=== PATIENT | female | born 1940 | race Caucasian/White ===

== ENCOUNTER 2016-11-07 21:47 | Inpatient (IN) | payer OTHER ==
[~2016-11-07] VITALS: Ht 154.9 cm; Wt 36.4 kg
[~2016-11-07 21:47] MED LIST: BP medication; BP medication PO; FAMO40TA57 PO; LEVE500T6 PO; LISI1TAB3 PO; PRED20TA PO; VENTOLIN HFA18 GM IH
[2016-11-07 22:29] LABS: BILIRUBIN,URINE NEGATIVE (NEG); GLUCOSE,URINE NEGATIVE (NEG); NITRITE,URINE NEGATIVE (NEG); PH,URINE 6.5; PROTEIN,URINE 100 mg/dL (NEG-TRACE); UROBILINOGEN,URINE 0.2 mg/dL (0.2 mg/dL)
[2016-11-07] MEDS ORDERED: IV NORMAL SALINE 500ML BAG 500 ML IV ONE (22:30)
[2016-11-07 22:36] LABS: BARBITURATES NEG (NEG); BENZODIAZEPINES POS (NEG); CANNABINOIDS NEG (NEG); COCAINE NEG (NEG); ETHANOL, URINE NEG (NEG); METHADONE NEG (NEG); OPIATES NEG (NEG); PHENCYCLIDINE NEG (NEG)
[2016-11-07 22:44] LABS: BASO % 0 % (0-3); EOS % 1 % (0-3); HEMATOCRIT 30.7 % (36.0-47.0); HEMOGLOBIN 10.2 g/dL (12.0-15.5); LYMPH # 0.6 x10^3/uL (1.0-4.8); LYMPH % 17 % (24-48); MEAN CORPUSCULAR HEMOGLOBIN 32 pg (25-35); MEAN CORPUSCULAR HGB CONC 33 g/dL (31-37); MEAN CORPUSCULAR VOLUME 97 fL (79-100); MONO % 4 % (0-9); NEUT % 78 % (31-73); PLATELET COUNT 107 x10^3/uL (140-400); RED BLOOD COUNT 3.17 x10^6/uL (3.50-5.40); RED CELL DISTRIBUTION WIDTH 14.7 % (11.5-14.5); WHITE BLOOD COUNT 3.5 x10^3/uL (4.0-11.0)
[2016-11-07 22:45] LABS: BACTERIA,URINE MANY /HPF (0-FEW); SQUAMOUS EPITHELIAL CELL,UR FEW /LPF
[2016-11-07 22:53] LABS: PROTHROMBIN TIME PATIENT 12.6 SEC (11.7-14.0)
[2016-11-07 22:54] LABS: CREATININE 1.2 mg/dL (0.6-1.0); GFR 43.8; POTASSIUM 3.5 mmol/L (3.5-5.1)
[2016-11-07 23:00] LABS: ALBUMIN 3.7 g/dL (3.4-5.0); ALBUMIN/GLOBULIN RATIO 0.9 (1.0-1.7); TOTAL BILIRUBIN 0.5 mg/dL (0.2-1.0)
--- NOTE | 2016-11-07 23:20 | RAD ---
PROCEDURE CT head without contrast HISTORY Seizure TECHNIQUE Exposure: One or more of the following individualized dose reduction techniques were utilized for this exam: 1. Automated exposure control. 2. Adjustment of the mA and/or kV according to patient size. 3. Use of iterative reconstruction technique. [address] imaging skullbase to vertex COMPARISON CT head September 04, 2014 FINDINGS Extensive cerebral white matter hypoattenuation is similar to the prior, nonspecific, statistically most likely advanced chronic microvascular ischemic gliosis. No intracranial hemorrhage, mass, hydrocephalus or infarction mild generalized brain atrophy similar the prior exam orbits, paranasal sinuses, mastoids and bones are unremarkable. IMPRESSION No acute intracranial CT abnormality. Stable exam. Electronically signed by: Noman Carrion MD (Nov 07, 2016 23:18:53)
[2016-11-08] VITALS (8 sets, daily range): BP systolic 119–159; BP diastolic 50–114
[2016-11-08] MEDS ORDERED: ONDANSETRON PF 4 MG/2 ML VIAL. IV PRN (01:45)
[2016-11-08] MEDS ORDERED: ACETAMINOPHEN 325 MG TABLET. PO PRN (01:45)
--- NOTE | 2016-11-08 01:55 | ED.ADGEN ---
Past Medical History Past Medical History: Dementia, Hypertension, Seizure, Schizophrenia, Other Additional Past Medical Histor: CHRONIC N/V Past Surgical History: Alcohol Use: None Drug Use: None Adult General Chief Complaint Chief Complaint: SEIZURE HPI HPI Patient is a 75 year old woman, history of seizure disorder, dementia, hypertension, who presents via EMS with report of seizure. Previous report, patient was found by her lying on the couch, experiencing a seizure. Per EMS report, the patient is reportedly taking her medications as directed. Patient had a second seizure en route to the ED, at that time was given 5 of Versed, upon arrival seizure activity has ceased, and patient is postictal. Is maintaining an airway, but not answering questions or following commands. No reported history of trauma, fever, or preceding illness described by medics, however patient's family is not present in the ED at this time patient cannot provide additional history. Review of Systems Review of Systems Unable to obtain secondary to clinical condition. Current Medications Current Medications Current Medications Medications (Trade) Dose Ordered Sig/Agata Start Time Stop Time Status Last Admin Dose Admin Sodium Chloride (Iv Sodium Chloride 0.9% 500ml Bag) 500 ml @ 500 mls/hr 1X ONCE 11/07/16 22:30 11/07/16 23:29 DC 11/07/16 22:40 500 MLS/HR Allergies Allergies Allergies Coded Allergies Type Severity Reaction Last Updated Verified benztropine mesylate Allergy Intermediate 09/10/14 Yes chocolate flavor Allergy Intermediate 09/10/14 Yes cocaine Allergy Intermediate HIVES 09/10/14 Yes codeine Allergy Intermediate 09/10/14 Yes milk Adverse Reaction Intermediate Nausea and Vomiting 04/19/15 Yes Physical Exam Physical Exam Constitutional: Well developed, thin, no acute distress, non-toxic appearance. [ ] Nasal cannula in place. HENT: Normocephalic, atraumatic, bilateral external ears normal, oropharynx moist, no oral exudates, nose normal. [] Eyes: PERRLA, EOMI, conjunctiva normal, no discharge. [] Neck: Normal range of motion, no tenderness, supple, no stridor. [] Cardiovascular:Heart rate regular rhythm, no murmur, S1, S2, rubs or gallops. [] Lungs & Thorax: Bilateral breath sounds clear to auscultation, no wheezing, rhonchi, rales. [] Abdomen: Bowel sounds normal, soft, no tenderness, no rebound or rigidity, no guarding, no masses, no pulsatile masses. [] Skin: Warm, dry, no erythema, no rash. [] Back: No tenderness, no CVA tenderness. [] Extremities: No tenderness, no cyanosis, no clubbing, ROM intact, no edema. [] Neurologic: Patient will open eyes to verbal and tactile stimuli, not speaking, not following commands, and reassessment, patient is speaking with speech is garbled, is following commands appropriately. Psychologic: Affect normal, judgement normal, mood normal. [] Current Patient Data Vital Signs Vital Signs Date Time Temp Pulse Resp B/P Pulse Ox O2 Delivery O2 Flow Rate FiO2 11/07/16 23:47 88 16 159/114 99 Room Air 11/07/16 21:50 98.5 2 98.5 Lab Values Laboratory Tests Test 11/07/16 22:15 11/07/16 22:30 Urine Collection Type Unknown Urine Color Yellow Urine Clarity Clear Urine pH 6.5 Urine Specific [place] 1.010 Urine Protein 100mg/dL (NEG-TRACE) Urine Glucose (UA) Negativemg/dL (NEG) Urine Ketones (Stick) Negativemg/dL (NEG) Urine Blood Trace (NEG) Urine Nitrite Negative (NEG) Urine Bilirubin Negative (NEG) Urine Urobilinogen Dipstick 0.2mg/dL (0.2 mg/dL) Urine Leukocyte Esterase Trace (NEG) Urine RBC 3-5/HPF (0-2) Urine WBC 5-10/HPF (0-4) Urine Squamous Epithelial Cells Few/LPF Urine Bacteria Many/HPF (0-FEW) Urine Opiates Screen Neg (NEG) Urine Methadone Screen Neg (NEG) Urine Barbiturates Neg (NEG) Urine Phencyclidine Screen Neg (NEG) Urine Amphetamine/Methamphetamine Neg (NEG) Urine Benzodiazepines Screen Pos (NEG) Urine Cocaine Screen Neg (NEG) Urine Cannabinoids Screen Neg (NEG) Urine Ethyl Alcohol Neg (NEG) White Blood Count 3.5x10^3/uL (4.0-11.0) L Red Blood Count 3.17x10^6/uL (3.50-5.40) L Hemoglobin 10.2g/dL (12.0-15.5) L Hematocrit 30.7% (36.0-47.0) L Mean Corpuscular Volume 97fL (79-100) Mean Corpuscular Hemoglobin 32pg (25-35) Mean Corpuscular Hemoglobin Concent 33g/dL (31-37) Red Cell Distribution Width 14.7% (11.5-14.5) H Platelet Count 107x10^3/uL (140-400) L Neutrophils (%) (Auto) 78% (31-73) H Lymphocytes (%) (Auto) 17% (24-48) L Monocytes (%) (Auto) 4% (0-9) Eosinophils (%) (Auto) 1% (0-3) Basophils (%) (Auto) 0% (0-3) Neutrophils # (Auto) 2.8x10^3uL (1.8-7.7) Lymphocytes # (Auto) 0.6x10^3/uL (1.0-4.8) L Monocytes # (Auto) 0.1x10^3/uL (0.0-1.1) Eosinophils # (Auto) 0.0x10^3/uL (0.0-0.7) Basophils # (Auto) 0.0x10^3/uL (0.0-0.2) Prothrombin Time 12.6SEC (11.7-14.0) Prothrombin Time INR 1.0 (0.8-1.1) PTT 31SEC (24-38) Sodium Level 141mmol/L (136-145) Potassium Level 3.5mmol/L (3.5-5.1) Chloride Level 104mmol/L (98-107) Carbon Dioxide Level 26mmol/L (21-32) Anion Gap 11 (6-14) Blood Urea Nitrogen 21mg/dL (7-20) H Creatinine 1.2mg/dL (0.6-1.0) H Estimated GFR (Cockcroft-Gault) 43.8 BUN/Creatinine Ratio 18 (6-20) Glucose Level 119mg/dL (70-99) H Lactic Acid Level 2.0mmol/L (0.4-2.0) Calcium Level 9.0mg/dL (8.5-10.1) Total Bilirubin 0.5mg/dL (0.2-1.0) Aspartate Amino Transferase (AST) 27U/L (15-37) Alanine Aminotransferase (ALT) 19U/L (14-59) Alkaline Phosphatase 134U/L (46-116) H Troponin I Quantitative < 0.017ng/mL (0.000-0.055) Total Protein 8.0g/dL (6.4-8.2) Albumin 3.7g/dL (3.4-5.0) Albumin/Globulin Ratio 0.9 (1.0-1.7) L Laboratory Tests 11/07/16 22:30 Laboratory Tests 11/07/16 22:30 EKG EKG EC23/11/17: Sinus tachycardia, heart rate 112 bpm, low limb lead voltage noted with incomplete right bundle-branch block noted, abnormalities noted in inferior leads, QTc of 482, DC 132, QRS of 122, abnormal ECG, no prior for comparison, does not meet STEMI criteria. As interpreted by me. Radiology/Procedures Radiology/Procedures [] [facility] [address] [place] [address] IMAGING REPORT Signed PATIENT: EVELYN SERRA ACCOUNT: [id number] : 1940 LOCATION: ER AGE: 75 SEX: F EXAM STATUS: PRE ER ORD. PHYSICIAN: JULIA HERNANDEZ DO REASON: seizure PROCEDURE: HEAD WO CONTRAST PROCEDURE CT head without contrast HISTORY Seizure TECHNIQUE Exposure: One or more of the following individualized dose reduction techniques were utilized for this exam: 1. Automated exposure control. 2. Adjustment of the mA and/or kV according to patient size. 3. Use of iterative reconstruction technique. [address] imaging skullbase to vertex COMPARISON CT head September 04, 2014 FINDINGS Extensive cerebral white matter hypoattenuation is similar to the prior, nonspecific, statistically most likely advanced chronic microvascular ischemic gliosis. No intracranial hemorrhage, mass, hydrocephalus or infarction mild generalized brain atrophy similar the prior exam orbits, paranasal sinuses, mastoids and bones are unremarkable. IMPRESSION No acute intracranial CT abnormality. Stable exam. Electronically signed by: Elly Carrion MD (Nov 07, 2016 23:18:53) DICTATED and SIGNED BY: ELLY CARRION MD DATE: 11/07/16 [id number] CC: JENN ZUÑIGA MD; JULIA HERNANDEZ DO ~ Impressions: Chest x-ray: One view: Normal ulnar a silhouette, enlarged cardiac silhouette, no infiltrates, no effusions, no soft tissue or bony abnormalities identified. No significant changes from prior. As interpreted by me. Course & Med Decision Making Course & Med Decision Making Pertinent Labs and Imaging studies reviewed. (See chart for details) Patient with improvement of mentation, is now awake, alert, garbled speech remains, patient is moving all extremities. Unclear what her baseline mental status is, unable to contact family after multiple attempts. Did discuss findings as above with Dr. Holly, on-call for the patient's primary care provider , we'll mid to the hospital for observation, seizure protocol, and consultation with neurology. Patient remained stable during her ED course. No further seizure activity. Transfer to the floor without issue. Dragon Disclaimer Dragon Disclaimer This electronic medical record was generated, in whole or in part, using a voice recognition dictation system. Departure Impression: Primary Impression: Seizure Disposition: 09 ADMITTED INPATIENT Admitting Physician: Levon Holly Condition: IMPROVED JULIA HERNANDEZ DO Nov 08, 2016 01:55
--- NOTE | 2016-11-08 08:51 | EKG ---
[facility] [address] [place] [address] Test Date: 2016-11-07 Test Time: 22:18:41 Pat Name: EVELYN SERRA Department: Room: Gender: F [employer]: : 1940 Requested By: JULIA HERNANDEZ Order Number: [id number] Reading MD: Measurements Intervals [place] Rate: 112 P: 44 NV: 132 QRS: 87 QRSD: 122 T: -3 QT: 352 QTc: 482 Interpretive Statements SINUS TACHYCARDIA ATRIAL PREMATURE COMPLEX(ES) LOW LIMB LEAD VOLTAGE INCOMPLETE RIGHT BUNDLE BRANCH BLOCK T ABNORMALITY IN INFERIOR LEADS ABNORMAL ECG RI6.01 No previous ECG available for comparison
--- NOTE | 2016-11-08 09:04 | RAD ---
AP portable chest radiograph 11/07/2016 Clinical History: Altered mental status. Clinical concern for cardiopulmonary disease. An AP portable erect digital radiograph of the chest was obtained. Comparison study is dated 03/12/2016. The cardiac silhouette is mildly enlarged. The thoracic aorta is tortuous. No acute pulmonary infiltrate is seen. No pleural effusion or pneumothorax is noted. The osseous structures are unchanged. Impression: Mild cardiomegaly. No acute pulmonary infiltrate is seen.
--- NOTE | 2016-11-08 12:06 | PDOC2 ---
NEUROLOGY CONSULT Date of Admission Date of Admission DATE: 11/08/16 TIME: 11:52 Reason for Consult Reason for Consult: IMPRESSION: Seizure. Metabolic encephalopathy. UTI HTN Dementia Schizophrenia. Benzo positive in system, but unknown her meds hx. RECOMMENDATIONS/PLAN: Continue Keppra 500 mg bid. EEG. Lab: see orders. Treat UTI per floor team Treat medical diseases per floor team. HISTORY OF THE PRESENT ILLNESS: 75-y-old female patient with Hx of seizures and has been treated with Keppra. She was reportedly to have 2 seizures on 11/07 to be brought to the ER of [facility]. No detailed information is available about her seizure. She is significantly demented and is unable to provide history. PAST MEDICAL HISTORY: Please see above. PAST SURGERY HISTORY: . ALLERGY: Unknown MEDICATIONS: Refer to [facility] HISTORY: Non contributory. SOCIAL HISTORY: Unknown her status of smoking, drinking, and illicit drug use. REVIEW OF SYSTEMS: Constitutional: Mild malnutrition. Head: No recent traumatic brain or head injury. Skin: No edema, or rash. Ear: No infection, tinnitus. Eyes: No vision loss or color blindness. Nose: No bleeding or purulent discharges. Hearing: No hearing decrease. Neck: No injury. Breast: No history of cancer, masses,or discharges. Cardiac: HTN Pulmonary: No current pneumonia. GI: No GI ulcer, GI bleeding. Urinary/genital: UTI. Endocrinologic: No cousin face, craniofacial dysmorphism, polydactyly. Skeletomuscular: Generalized weakness. Neurological: see HP. Psychiatric: Denies drug use/abuse. Otherwise, not [id number] review of systems. PHYSICAL EXAMINATION: General appearance is in subacute distress. HEENT: Normocephalic and nontraumatic. Eyes, nose, ears, and throat are unremarkable. Neck is supple. No lymphadenopathy.No crepitus. Cardiovascular: S1, S2, regular rate and rhythm. Pulmonary: Relative clear to auscultation bilaterally. Abdomen: Bowel sounds are positive. Extremities: No rash, lesions, or edema. No restriction of range of motion NEUROLOGICAL EXAMINATION: Sleepiness but arousable. Not oriented to time, place and person. PERRL. EOMI. CN: no acute focal findings. Muscle tone: within normal. Muscle strength: 4+ DTR: 2- Plantar reflex: Neutral response bilaterally Gait: not examined in bed. Sensory exam: no acute abnormal findings. Not able to access cerebellar signs due to not follow commands. She was not able to perform F-T-N test. Current Medications Current Medications Current Medications Sodium Chloride (Iv Sodium Chloride 0.9% 500ml Bag) 500 ml @ 500 mls/hr 1X ONCE IV Last administered on 11/07/16t 22:40; Start 11/07/16 at 22:30; Stop at 23:29; Status DC Ondansetron HCl (Zofran) 4 mg PRN Q8HRS PRN IV NAUSEA/VOMITING; Start 11/08/16 at 01:45; Stop 11/09/16 at 01:44 Acetaminophen (Tylenol) 650 mg PRN Q4HRS PRN PO FEVER; Start 11/08/16 at 01:45; Stop 11/09/16 at 01:44 Levetiracetam (Keppra) 500 mg BID PO ; Start 11/08/16 at 12:00; Status UNV Active Scripts Active Pepcid (Famotidine) 40 Mg Tablet 40 Mg PO HS Reported Ventolin Hfa Inhaler (Albuterol Sulfate) 18 Gm Hfa.aer.ad 18 Gm IH DAILY Levetiracetam 500 Mg Tablet 500 Mg PO DAILY Allergies Allergies: Coded Allergies: benztropine mesylate (Verified Allergy, Intermediate, 09/10/14) chocolate flavor (Verified Allergy, Intermediate, 09/10/14) cocaine (Verified Allergy, Intermediate, HIVES, 09/10/14) codeine (Verified Allergy, Intermediate, 09/10/14) milk (Verified Adverse Reaction, Intermediate, Nausea and Vomiting, ) Vitals VITALS Vital Signs Date Time Temp Pulse Resp B/P Pulse Ox O2 Delivery O2 Flow Rate FiO2 11/08/16 11:00 100.5 90 18 125/81 99 Room Air 100.5 11/08/16 07:00 Labs Labs Laboratory Tests Test 11/07/16 22:15 11/07/16 22:30 Urine Collection Type Unknown Urine Color Yellow Urine Clarity Clear Urine pH 6.5 Urine Specific [place] 1.010 Urine Protein 100mg/dL (NEG-TRACE) Urine Glucose (UA) Negativemg/dL (NEG) Urine Ketones (Stick) Negativemg/dL (NEG) Urine Blood Trace (NEG) Urine Nitrite Negative (NEG) Urine Bilirubin Negative (NEG) Urine Urobilinogen Dipstick 0.2mg/dL (0.2 mg/dL) Urine Leukocyte Esterase Trace (NEG) Urine RBC 3-5/HPF (0-2) Urine WBC 5-10/HPF (0-4) Urine Squamous Epithelial Cells Few/LPF Urine Bacteria Many/HPF (0-FEW) Urine Opiates Screen Neg (NEG) Urine Methadone Screen Neg (NEG) Urine Barbiturates Neg (NEG) Urine Phencyclidine Screen Neg (NEG) Urine Amphetamine/Methamphetamine Neg (NEG) Urine Benzodiazepines Screen Pos (NEG) Urine Cocaine Screen Neg (NEG) Urine Cannabinoids Screen Neg (NEG) Urine Ethyl Alcohol Neg (NEG) White Blood Count 3.5x10^3/uL (4.0-11.0) Red Blood Count 3.17x10^6/uL (3.50-5.40) Hemoglobin 10.2g/dL (12.0-15.5) Hematocrit 30.7% (36.0-47.0) Mean Corpuscular Volume 97fL (79-100) Mean Corpuscular Hemoglobin 32pg (25-35) Mean Corpuscular Hemoglobin Concent 33g/dL (31-37) Red Cell Distribution Width 14.7% (11.5-14.5) Platelet Count 107x10^3/uL (140-400) Neutrophils (%) (Auto) 78% (31-73) Lymphocytes (%) (Auto) 17% (24-48) Monocytes (%) (Auto) 4% (0-9) Eosinophils (%) (Auto) 1% (0-3) Basophils (%) (Auto) 0% (0-3) Neutrophils # (Auto) 2.8x10^3uL (1.8-7.7) Lymphocytes # (Auto) 0.6x10^3/uL (1.0-4.8) Monocytes # (Auto) 0.1x10^3/uL (0.0-1.1) Eosinophils # (Auto) 0.0x10^3/uL (0.0-0.7) Basophils # (Auto) 0.0x10^3/uL (0.0-0.2) Prothrombin Time 12.6SEC (11.7-14.0) Prothromb Time International Ratio 1.0 (0.8-1.1) Activated Partial Thromboplast Time 31SEC (24-38) Sodium Level 141mmol/L (136-145) Potassium Level 3.5mmol/L (3.5-5.1) Chloride Level 104mmol/L (98-107) Carbon Dioxide Level 26mmol/L (21-32) Anion Gap 11 (6-14) Blood Urea Nitrogen 21mg/dL (7-20) Creatinine 1.2mg/dL (0.6-1.0) Estimated GFR (Cockcroft-Gault) 43.8 BUN/Creatinine Ratio 18 (6-20) Glucose Level 119mg/dL (70-99) Lactic Acid Level 2.0mmol/L (0.4-2.0) Calcium Level 9.0mg/dL (8.5-10.1) Total Bilirubin 0.5mg/dL (0.2-1.0) Aspartate Amino Transf (AST/SGOT) 27U/L (15-37) Alanine Aminotransferase (ALT/SGPT) 19U/L (14-59) Alkaline Phosphatase 134U/L (46-116) Troponin I Quantitative < 0.017ng/mL (0.000-0.055) Total Protein 8.0g/dL (6.4-8.2) Albumin 3.7g/dL (3.4-5.0) Albumin/Globulin Ratio 0.9 (1.0-1.7) Laboratory Tests Test 11/07/16 22:15 11/07/16 22:30 Urine Collection Type Unknown Urine Color Yellow Urine Clarity Clear Urine pH 6.5 Urine Specific [place] 1.010 Urine Protein 100mg/dL (NEG-TRACE) Urine Glucose (UA) Negativemg/dL (NEG) Urine Ketones (Stick) Negativemg/dL (NEG) Urine Blood Trace (NEG) Urine Nitrite Negative (NEG) Urine Bilirubin Negative (NEG) Urine Urobilinogen Dipstick 0.2mg/dL (0.2 mg/dL) Urine Leukocyte Esterase Trace (NEG) Urine RBC 3-5/HPF (0-2) Urine WBC 5-10/HPF (0-4) Urine Squamous Epithelial Cells Few/LPF Urine Bacteria Many/HPF (0-FEW) Urine Opiates Screen Neg (NEG) Urine Methadone Screen Neg (NEG) Urine Barbiturates Neg (NEG) Urine Phencyclidine Screen Neg (NEG) Urine Amphetamine/Methamphetamine Neg (NEG) Urine Benzodiazepines Screen Pos (NEG) Urine Cocaine Screen Neg (NEG) Urine Cannabinoids Screen Neg (NEG) Urine Ethyl Alcohol Neg (NEG) White Blood Count 3.5x10^3/uL (4.0-11.0) Red Blood Count 3.17x10^6/uL (3.50-5.40) Hemoglobin 10.2g/dL (12.0-15.5) Hematocrit 30.7% (36.0-47.0) Mean Corpuscular Volume 97fL (79-100) Mean Corpuscular Hemoglobin 32pg (25-35) Mean Corpuscular Hemoglobin Concent 33g/dL (31-37) Red Cell Distribution Width 14.7% (11.5-14.5) Platelet Count 107x10^3/uL (140-400) Neutrophils (%) (Auto) 78% (31-73) Lymphocytes (%) (Auto) 17% (24-48) Monocytes (%) (Auto) 4% (0-9) Eosinophils (%) (Auto) 1% (0-3) Basophils (%) (Auto) 0% (0-3) Neutrophils # (Auto) 2.8x10^3uL (1.8-7.7) Lymphocytes # (Auto) 0.6x10^3/uL (1.0-4.8) Monocytes # (Auto) 0.1x10^3/uL (0.0-1.1) Eosinophils # (Auto) 0.0x10^3/uL (0.0-0.7) Basophils # (Auto) 0.0x10^3/uL (0.0-0.2) Prothrombin Time 12.6SEC (11.7-14.0) Prothromb Time International Ratio 1.0 (0.8-1.1) Activated Partial Thromboplast Time 31SEC (24-38) Sodium Level 141mmol/L (136-145) Potassium Level 3.5mmol/L (3.5-5.1) Chloride Level 104mmol/L (98-107) Carbon Dioxide Level 26mmol/L (21-32) Anion Gap 11 (6-14) Blood Urea Nitrogen 21mg/dL (7-20) Creatinine 1.2mg/dL (0.6-1.0) Estimated GFR (Cockcroft-Gault) 43.8 BUN/Creatinine Ratio 18 (6-20) Glucose Level 119mg/dL (70-99) Lactic Acid Level 2.0mmol/L (0.4-2.0) Calcium Level 9.0mg/dL (8.5-10.1) Total Bilirubin 0.5mg/dL (0.2-1.0) Aspartate Amino Transf (AST/SGOT) 27U/L (15-37) Alanine Aminotransferase (ALT/SGPT) 19U/L (14-59) Alkaline Phosphatase 134U/L (46-116) Troponin I Quantitative < 0.017ng/mL (0.000-0.055) Total Protein 8.0g/dL (6.4-8.2) Albumin 3.7g/dL (3.4-5.0) Albumin/Globulin Ratio 0.9 (1.0-1.7) NARESH BELL MD Nov 08, 2016 12:06
[2016-11-08] MEDS: LEVETIRACETAM 500 MG TABLET PO SCH ×2 (12:12→21:05)
--- NOTE | 2016-11-08 19:37 | PDOC ---
GENERAL General: see dictated H&P. Problems: VITAL SIGNS Vital Signs: Vital Signs Date Time Temp Pulse Resp B/P Pulse Ox O2 Delivery O2 Flow Rate FiO2 11/08/16 15:00 100.7 89 18 127/84 98 Room Air 100.7 11/08/16 07:00 I & O I & O Intake and Output 11/08/16 07:00 Intake Total 500 ml Balance 500 ml IV Total 500 ml # Voids 1 ALLERGIES Allergies: Allergies Coded Allergies Type Severity Reaction Last Updated Verified benztropine mesylate Allergy Intermediate 09/10/14 Yes chocolate flavor Allergy Intermediate 09/10/14 Yes cocaine Allergy Intermediate HIVES 09/10/14 Yes codeine Allergy Intermediate 09/10/14 Yes milk Adverse Reaction Intermediate Nausea and Vomiting 04/19/15 Yes MEDS Medications: Current Medications Medications (Trade) Dose Ordered Sig/Agata Start Time Stop Time Status Last Admin Dose Admin Acetaminophen (Tylenol) 650 mg PRN Q4HRS PRN 11/08/16 01:45 11/09/16 01:44 Levetiracetam (Keppra) 500 mg BID 11/08/16 12:00 11/08/16 12:12 500 MG Ondansetron HCl (Zofran) 4 mg PRN Q8HRS PRN 11/08/16 01:45 11/09/16 01:44 Sodium Chloride (Iv Sodium Chloride 0.9% 500ml Bag) 500 ml @ 500 mls/hr 1X ONCE 11/07/16 22:30 11/07/16 23:29 DC 11/07/16 22:40 500 MLS/HR LAB Lab: Laboratory Tests Test 11/07/16 22:15 11/07/16 22:30 11/08/16 11:45 Urine Collection Type Unknown Urine Color Yellow Urine Clarity Clear Urine pH 6.5 Urine Specific [place] 1.010 Urine Protein 100mg/dL (NEG-TRACE) Urine Glucose (UA) Negativemg/dL (NEG) Urine Ketones (Stick) Negativemg/dL (NEG) Urine Blood Trace (NEG) Urine Nitrite Negative (NEG) Urine Bilirubin Negative (NEG) Urine Urobilinogen Dipstick 0.2mg/dL (0.2 mg/dL) Urine Leukocyte Esterase Trace (NEG) Urine RBC 3-5/HPF (0-2) Urine WBC 5-10/HPF (0-4) Urine Squamous Epithelial Cells Few/LPF Urine Bacteria Many/HPF (0-FEW) Urine Opiates Screen Neg (NEG) Urine Methadone Screen Neg (NEG) Urine Barbiturates Neg (NEG) Urine Phencyclidine Screen Neg (NEG) Urine Amphetamine/Methamphetamine Neg (NEG) Urine Benzodiazepines Screen Pos (NEG) Urine Cocaine Screen Neg (NEG) Urine Cannabinoids Screen Neg (NEG) Urine Ethyl Alcohol Neg (NEG) White Blood Count 3.5x10^3/uL (4.0-11.0) Red Blood Count 3.17x10^6/uL (3.50-5.40) Hemoglobin 10.2g/dL (12.0-15.5) Hematocrit 30.7% (36.0-47.0) Mean Corpuscular Volume 97fL (79-100) Mean Corpuscular Hemoglobin 32pg (25-35) Mean Corpuscular Hemoglobin Concent 33g/dL (31-37) Red Cell Distribution Width 14.7% (11.5-14.5) Platelet Count 107x10^3/uL (140-400) Neutrophils (%) (Auto) 78% (31-73) Lymphocytes (%) (Auto) 17% (24-48) Monocytes (%) (Auto) 4% (0-9) Eosinophils (%) (Auto) 1% (0-3) Basophils (%) (Auto) 0% (0-3) Neutrophils # (Auto) 2.8x10^3uL (1.8-7.7) Lymphocytes # (Auto) 0.6x10^3/uL (1.0-4.8) Monocytes # (Auto) 0.1x10^3/uL (0.0-1.1) Eosinophils # (Auto) 0.0x10^3/uL (0.0-0.7) Basophils # (Auto) 0.0x10^3/uL (0.0-0.2) Prothrombin Time 12.6SEC (11.7-14.0) Prothromb Time International Ratio 1.0 (0.8-1.1) Activated Partial Thromboplast Time 31SEC (24-38) Sodium Level 141mmol/L (136-145) Potassium Level 3.5mmol/L (3.5-5.1) Chloride Level 104mmol/L (98-107) Carbon Dioxide Level 26mmol/L (21-32) Anion Gap 11 (6-14) Blood Urea Nitrogen 21mg/dL (7-20) Creatinine 1.2mg/dL (0.6-1.0) Estimated GFR (Cockcroft-Gault) 43.8 BUN/Creatinine Ratio 18 (6-20) Glucose Level 119mg/dL (70-99) Lactic Acid Level 2.0mmol/L (0.4-2.0) Calcium Level 9.0mg/dL (8.5-10.1) Total Bilirubin 0.5mg/dL (0.2-1.0) Aspartate Amino Transf (AST/SGOT) 27U/L (15-37) Alanine Aminotransferase (ALT/SGPT) 19U/L (14-59) Alkaline Phosphatase 134U/L (46-116) Troponin I Quantitative < 0.017ng/mL (0.000-0.055) Total Protein 8.0g/dL (6.4-8.2) Albumin 3.7g/dL (3.4-5.0) Albumin/Globulin Ratio 0.9 (1.0-1.7) Thyroid Stimulating Hormone (TSH) 1.011uIU/mL (0.358-3.74) DARYL THOMPSON MD Nov 08, 2016 19:37
[2016-11-08] MEDS ORDERED: FAMOTIDINE 20 MG TABLET. PO SCH (21:00)
[2016-11-09] VITALS (7 sets, daily range): BP systolic 129–153; BP diastolic 79–100
--- NOTE | 2016-11-09 05:33 | HP ---
ADMIT DATE: 11/08/2016 CHIEF COMPLAINT AND HISTORY OF PRESENT ILLNESS: This is a 75-year-old white female, patient of Dr. Darius Robbins who had seizure at home and then followed by a second seizure in the ambulance on the way to the Emergency Room. She does have a history of seizure disorder and reportedly is taking her medicines as directed. The second seizure was interrupted with Versed IV in the ambulance. She was postictal and nonresponsive in the Emergency Room and admitted for neurological consultation and further workup. PAST MEDICAL HISTORY: Remarkable for dementia, hypertension, seizure disorder, schizophrenia, chronic nausea and vomiting. PAST SURGICAL HISTORY: Remarkable for . SOCIAL HISTORY AND FAMILY HISTORY: Noncontributory. HOME MEDICATIONS: Listed on the computer and have been addressed. ALLERGIES: ALLERGIC TO ____ AND MILK. REVIEW OF SYSTEMS: Unobtainable due to her altered mental status. PHYSICAL EXAMINATION: HEENT: Remarkable for glasses. NECK: Supple without adenopathy or thyromegaly. CHEST: Clear to auscultation and percussion. HEART: Regular rate and rhythm without S3, S4 or murmur. ABDOMEN: Soft, nontender, without hepatosplenomegaly. EXTREMITIES: Without cyanosis, clubbing or edema. NEUROLOGIC: Remarkable for confusion. No focal findings ____. IMPRESSION: Seizures as noted above with other medical problems. PLAN: The patient has been admitted. She will be monitored ____ Neurology will be asked for suggestions and the patient will be monitored, managed and treated appropriately. DARYL THOMPSON MD DR: PAULINE/rosario JOB#: [id number] / [id number]
[2016-11-09 06:51] LABS: BASO % 1 % (0-3); EOS % 1 % (0-3); HEMATOCRIT 26.2 % (36.0-47.0); HEMOGLOBIN 8.8 g/dL (12.0-15.5); LYMPH # 1.6 x10^3/uL (1.0-4.8); LYMPH % 37 % (24-48); MEAN CORPUSCULAR HEMOGLOBIN 32 pg (25-35); MEAN CORPUSCULAR HGB CONC 34 g/dL (31-37); MEAN CORPUSCULAR VOLUME 95 fL (79-100); MONO % 10 % (0-9); NEUT % 51 % (31-73); PLATELET COUNT 101 x10^3/uL (140-400); RED BLOOD COUNT 2.77 x10^6/uL (3.50-5.40); RED CELL DISTRIBUTION WIDTH 14.5 % (11.5-14.5); WHITE BLOOD COUNT 4.3 x10^3/uL (4.0-11.0)
[2016-11-09 06:56] LABS: CALCIUM 8.6 mg/dL (8.5-10.1); CREATININE 1.5 mg/dL (0.6-1.0); GFR 33.9; POTASSIUM 3.4 mmol/L (3.5-5.1)
[2016-11-09] MEDS: LEVETIRACETAM 500 MG TABLET PO SCH ×2 (09:12→21:33)
--- NOTE | 2016-11-09 12:34 | PDOC ---
PROGRESS NOTES Subjective Subjective Pt out of her room this am. Objective Objective VSS. Afebrile. Vital Signs Date Time Temp Pulse Resp B/P Pulse Ox O2 Delivery O2 Flow Rate FiO2 11/09/16 10:37 99.3 78 16 144/88 97 Room Air 99.3 11/09/16 03:00 2.0 Intake and Output 11/09/16 07:00 Intake Total 340 ml Output Total 0 ml Balance 340 ml Intake Oral 340 ml Output Urine Total 0 ml # Voids 3 Assessment Assessment Problems Medical Problems: (1) Seizure Status: Acute Plan Plan of Care 1. Epilepsy -Neurology consulting -Pt on [facility] -Head CT: No acute intracranial CT abnormality. Stable exam. 2. Hypertension -Add Norvasc 5mg qd 3. Hypokalemia -K 3.5 upon admission, 3.4 this am. -Add KCL 10mEq qam -Recheck BMP in am 4. ARF -Creat 1.2 upon admission, 1.5 this am Comment Review of Relevant I have reviewed the following items gilbert (where applicable) has been applied. Labs Laboratory Tests Test 11/07/16 22:15 11/07/16 22:30 11/08/16 11:45 11/09/16 06:20 Urine Collection Type Unknown Urine Color Yellow Urine Clarity Clear Urine pH 6.5 Urine Specific [place] 1.010 Urine Protein 100mg/dL (NEG-TRACE) Urine Glucose (UA) Negativemg/dL (NEG) Urine Ketones (Stick) Negativemg/dL (NEG) Urine Blood Trace (NEG) Urine Nitrite Negative (NEG) Urine Bilirubin Negative (NEG) Urine Urobilinogen Dipstick 0.2mg/dL (0.2 mg/dL) Urine Leukocyte Esterase Trace (NEG) Urine RBC 3-5/HPF (0-2) Urine WBC 5-10/HPF (0-4) Urine Squamous Epithelial Cells Few/LPF Urine Bacteria Many/HPF (0-FEW) Urine Opiates Screen Neg (NEG) Urine Methadone Screen Neg (NEG) Urine Barbiturates Neg (NEG) Urine Phencyclidine Screen Neg (NEG) Urine Amphetamine/Methamphetamine Neg (NEG) Urine Benzodiazepines Screen Pos (NEG) Urine Cocaine Screen Neg (NEG) Urine Cannabinoids Screen Neg (NEG) Urine Ethyl Alcohol Neg (NEG) White Blood Count 3.5x10^3/uL (4.0-11.0) 4.3x10^3/uL (4.0-11.0) Red Blood Count 3.17x10^6/uL (3.50-5.40) 2.77x10^6/uL (3.50-5.40) Hemoglobin 10.2g/dL (12.0-15.5) 8.8g/dL (12.0-15.5) Hematocrit 30.7% (36.0-47.0) 26.2% (36.0-47.0) Mean Corpuscular Volume 97fL (79-100) 95fL (79-100) Mean Corpuscular Hemoglobin 32pg (25-35) 32pg (25-35) Mean Corpuscular Hemoglobin Concent 33g/dL (31-37) 34g/dL (31-37) Red Cell Distribution Width 14.7% (11.5-14.5) 14.5% (11.5-14.5) Platelet Count 107x10^3/uL (140-400) 101x10^3/uL (140-400) Neutrophils (%) (Auto) 78% (31-73) 51% (31-73) Lymphocytes (%) (Auto) 17% (24-48) 37% (24-48) Monocytes (%) (Auto) 4% (0-9) 10% (0-9) Eosinophils (%) (Auto) 1% (0-3) 1% (0-3) Basophils (%) (Auto) 0% (0-3) 1% (0-3) Neutrophils # (Auto) 2.8x10^3uL (1.8-7.7) 2.2x10^3uL (1.8-7.7) Lymphocytes # (Auto) 0.6x10^3/uL (1.0-4.8) 1.6x10^3/uL (1.0-4.8) Monocytes # (Auto) 0.1x10^3/uL (0.0-1.1) 0.4x10^3/uL (0.0-1.1) Eosinophils # (Auto) 0.0x10^3/uL (0.0-0.7) 0.1x10^3/uL (0.0-0.7) Basophils # (Auto) 0.0x10^3/uL (0.0-0.2) 0.0x10^3/uL (0.0-0.2) Prothrombin Time 12.6SEC (11.7-14.0) Prothromb Time International Ratio 1.0 (0.8-1.1) Activated Partial Thromboplast Time 31SEC (24-38) Sodium Level 141mmol/L (136-145) 144mmol/L (136-145) Potassium Level 3.5mmol/L (3.5-5.1) 3.4mmol/L (3.5-5.1) Chloride Level 104mmol/L (98-107) 111mmol/L (98-107) Carbon Dioxide Level 26mmol/L (21-32) 25mmol/L (21-32) Anion Gap 11 (6-14) 8 (6-14) Blood Urea Nitrogen 21mg/dL (7-20) 28mg/dL (7-20) Creatinine 1.2mg/dL (0.6-1.0) 1.5mg/dL (0.6-1.0) Estimated GFR (Cockcroft-Gault) 43.8 33.9 BUN/Creatinine Ratio 18 (6-20) Glucose Level 119mg/dL (70-99) 94mg/dL (70-99) Lactic Acid Level 2.0mmol/L (0.4-2.0) Calcium Level 9.0mg/dL (8.5-10.1) 8.6mg/dL (8.5-10.1) Total Bilirubin 0.5mg/dL (0.2-1.0) Aspartate Amino Transf (AST/SGOT) 27U/L (15-37) Alanine Aminotransferase (ALT/SGPT) 19U/L (14-59) Alkaline Phosphatase 134U/L (46-116) Troponin I Quantitative < 0.017ng/mL (0.000-0.055) Total Protein 8.0g/dL (6.4-8.2) Albumin 3.7g/dL (3.4-5.0) Albumin/Globulin Ratio 0.9 (1.0-1.7) Thyroid Stimulating Hormone (TSH) 1.011uIU/mL (0.358-3.74) Laboratory Tests Test 11/09/16 06:20 White Blood Count 4.3x10^3/uL (4.0-11.0) Red Blood Count 2.77x10^6/uL (3.50-5.40) Hemoglobin 8.8g/dL (12.0-15.5) Hematocrit 26.2% (36.0-47.0) Mean Corpuscular Volume 95fL (79-100) Mean Corpuscular Hemoglobin 32pg (25-35) Mean Corpuscular Hemoglobin Concent 34g/dL (31-37) Red Cell Distribution Width 14.5% (11.5-14.5) Platelet Count 101x10^3/uL (140-400) Neutrophils (%) (Auto) 51% (31-73) Lymphocytes (%) (Auto) 37% (24-48) Monocytes (%) (Auto) 10% (0-9) Eosinophils (%) (Auto) 1% (0-3) Basophils (%) (Auto) 1% (0-3) Neutrophils # (Auto) 2.2x10^3uL (1.8-7.7) Lymphocytes # (Auto) 1.6x10^3/uL (1.0-4.8) Monocytes # (Auto) 0.4x10^3/uL (0.0-1.1) Eosinophils # (Auto) 0.1x10^3/uL (0.0-0.7) Basophils # (Auto) 0.0x10^3/uL (0.0-0.2) Sodium Level 144mmol/L (136-145) Potassium Level 3.4mmol/L (3.5-5.1) Chloride Level 111mmol/L (98-107) Carbon Dioxide Level 25mmol/L (21-32) Anion Gap 8 (6-14) Blood Urea Nitrogen 28mg/dL (7-20) Creatinine 1.5mg/dL (0.6-1.0) Estimated GFR (Cockcroft-Gault) 33.9 Glucose Level 94mg/dL (70-99) Calcium Level 8.6mg/dL (8.5-10.1) Medications Current Medications Sodium Chloride (Iv Sodium Chloride 0.9% 500ml Bag) 500 ml @ 500 mls/hr 1X ONCE IV Last administered on 11/07/16 22:40; Start 11/07/16 at 22:30; Stop at 23:29; Status DC Ondansetron HCl (Zofran) 4 mg PRN Q8HRS PRN IV NAUSEA/VOMITING; Start 11/08/16 at 01:45; Stop 11/09/16 at 01:44; Status DC Acetaminophen (Tylenol) 650 mg PRN Q4HRS PRN PO FEVER; Start 11/08/16 at 01:45; Stop 11/09/16 at 01:44; Status DC Levetiracetam (Keppra) 500 mg BID PO Last administered on 11/09/16 09:12; Start 11/08/16 at 12:00 Famotidine (Pepcid) 40 mg QHS PO Last administered on 11/08/16 21:05; Start 11/08/16 at 21:00; Stop 11/09/16 at 02:19; Status DC Famotidine (Pepcid) 20 mg QHS PO ; Start 11/09/16 at 21:00 Active Scripts Active Pepcid (Famotidine) 40 Mg Tablet 40 Mg PO HS Reported Ventolin Hfa Inhaler (Albuterol Sulfate) 18 Gm Hfa.aer.ad 18 Gm IH DAILY Levetiracetam 500 Mg Tablet 500 Mg PO DAILY Vitals/I & O Vital Sign - Last 24 Hours 11/08/16 11/08/16 11/08/16 11/08/16 15:00 19:00 20:00 23:00 Temp 100.7 100.0 99.4 100.7 100.0 99.4 Pulse 89 91 95 Resp 18 18 B/P 127/84 150/83 148/96 Pulse Ox 98 96 100 O2 Delivery Room Air Room Air Room Air Nasal Cannula O2 Flow Rate 2.0 2.0 11/09/16 11/09/16 11/09/16 11/09/16 03:00 07:05 08:00 10:06 Temp 98.4 99.5 98.8 98.4 99.5 98.8 Pulse 86 80 68 Resp 18 16 B/P 151/100 145/88 143/79 Pulse Ox 95 96 98 O2 Delivery Room Air Room Air Room Air Room Air O2 Flow Rate 2.0 11/09/16 10:37 Temp 99.3 99.3 Pulse 78 Resp 16 B/P 144/88 Pulse Ox 97 O2 Delivery Room Air Intake and Output 11/08/16 11/08/16 11/09/16 15:00 23:00 07:00 Intake Total 100 ml 240 ml Output Total 0 ml Balance 100 ml 240 ml 0 ml DARYL THOMPSON MD Nov 09, 2016 12:34
[2016-11-09] MEDS ORDERED: POTASSIUM CHLORIDE 10 MEQ TABLET.ER. PO ONE (12:45)
--- NOTE | 2016-11-09 14:52 | PDOC ---
PROGRESS NOTES Assessment Assessment Seizure. Metabolic encephalopathy. UTI HTN Dementia Schizophrenia. Benzo positive in system, but unknown her meds hx. RECOMMENDATIONS/PLAN: Continue Keppra 500 mg bid. Treat UTI per floor team Treat medical diseases per floor team. EEG on 11/09/16: Fasting activity maybe meds effects. No seizure activity. HISTORY OF THE PRESENT ILLNESS: 75-y-old female patient with Hx of seizures and has been treated with Keppra. She was reportedly to have 2 seizures on 11/07 to be brought to the ER of [facility]. No detailed information is available about her seizure. She is significantly demented and is unable to provide history. Her mentation significantly improved on 11/09. PAST MEDICAL HISTORY: Please see above. PAST SURGERY HISTORY: . ALLERGY: Unknown MEDICATIONS: Refer to [facility] FAMILY HISTORY: Non contributory. SOCIAL HISTORY: Unknown her status of smoking, drinking, and illicit drug use. REVIEW OF SYSTEMS: Constitutional: Mild malnutrition. Head: No recent traumatic brain or head injury. Skin: No edema, or rash. Ear: No infection, tinnitus. Eyes: No vision loss or color blindness. Nose: No bleeding or purulent discharges. Hearing: No hearing decrease. Neck: No injury. Breast: No history of cancer, masses,or discharges. Cardiac: HTN Pulmonary: No current pneumonia. GI: No GI ulcer, GI bleeding. Urinary/genital: UTI. Endocrinologic: No cousin face, craniofacial dysmorphism, polydactyly. Skeletomuscular: Generalized weakness. Neurological: see HP. Psychiatric: Denies drug use/abuse. Otherwise, not [id number] review of systems. PHYSICAL EXAMINATION: General appearance is in subacute distress. HEENT: Normocephalic and nontraumatic. Eyes, nose, ears, and throat are unremarkable. Neck is supple. No lymphadenopathy.No crepitus. Cardiovascular: S1, S2, regular rate and rhythm. Pulmonary: Relative clear to auscultation bilaterally. Abdomen: Bowel sounds are positive. Extremities: No rash, lesions, or edema. No restriction of range of motion NEUROLOGICAL EXAMINATION: Awake. Laugh frequently w/o clear reason. Not oriented to time, place and person. PERRL. EOMI. Horizontal nystagmus noted. CN: no acute focal findings. Muscle tone: within normal. Muscle strength: 4+ DTR: 2- Plantar reflex: Neutral response bilaterally Gait: not examined in bed. Sensory exam: no acute abnormal findings. No acute cerebellar signs elicited except a few bits of nystagmus.. She was not able to perform F-T-N test. Objective Objective Vital Signs Date Time Temp Pulse Resp B/P Pulse Ox O2 Delivery O2 Flow Rate FiO2 11/09/16 10:37 99.3 78 16 144/88 97 Room Air 99.3 11/09/16 03:00 2.0 Intake and Output 11/09/16 07:00 Intake Total 340 ml Output Total 0 ml Balance 340 ml Intake Oral 340 ml Output Urine Total 0 ml # Voids 3 Vitals Signs Vitals VS - Last 72 Hours, by Label Date Time Temp Pulse Resp B/P Pulse Ox O2 Delivery O2 Flow Rate FiO2 11/09/16 10:37 99.3 78 16 144/88 97 Room Air 99.3 11/09/16 10:06 98.8 68 16 143/79 98 Room Air 98.8 11/09/16 08:00 Room Air 11/09/16 07:05 99.5 80 18 145/88 96 Room Air 99.5 11/09/16 03:00 98.4 86 151/100 95 Room Air 2.0 98.4 11/08/16 23:00 99.4 95 18 148/96 100 Nasal Cannula 2.0 99.4 11/08/16 20:00 Room Air 2.0 11/08/16 19:00 100.0 91 18 150/83 96 Room Air 100.0 11/08/16 15:00 100.7 89 18 127/84 98 Room Air 100.7 11/08/16 11:00 100.5 90 18 125/81 99 Room Air 100.5 11/08/16 07:00 100.2 89 18 141/79 98 Room Air 100.2 Laboratory Laboratory Laboratory Tests Test 11/09/16 06:20 White Blood Count 4.3x10^3/uL (4.0-11.0) Red Blood Count 2.77x10^6/uL (3.50-5.40) Hemoglobin 8.8g/dL (12.0-15.5) Hematocrit 26.2% (36.0-47.0) Mean Corpuscular Volume 95fL (79-100) Mean Corpuscular Hemoglobin 32pg (25-35) Mean Corpuscular Hemoglobin Concent 34g/dL (31-37) Red Cell Distribution Width 14.5% (11.5-14.5) Platelet Count 101x10^3/uL (140-400) Neutrophils (%) (Auto) 51% (31-73) Lymphocytes (%) (Auto) 37% (24-48) Monocytes (%) (Auto) 10% (0-9) Eosinophils (%) (Auto) 1% (0-3) Basophils (%) (Auto) 1% (0-3) Neutrophils # (Auto) 2.2x10^3uL (1.8-7.7) Lymphocytes # (Auto) 1.6x10^3/uL (1.0-4.8) Monocytes # (Auto) 0.4x10^3/uL (0.0-1.1) Eosinophils # (Auto) 0.1x10^3/uL (0.0-0.7) Basophils # (Auto) 0.0x10^3/uL (0.0-0.2) Sodium Level 144mmol/L (136-145) Potassium Level 3.4mmol/L (3.5-5.1) Chloride Level 111mmol/L (98-107) Carbon Dioxide Level 25mmol/L (21-32) Anion Gap 8 (6-14) Blood Urea Nitrogen 28mg/dL (7-20) Creatinine 1.5mg/dL (0.6-1.0) Estimated GFR (Cockcroft-Gault) 33.9 Glucose Level 94mg/dL (70-99) Calcium Level 8.6mg/dL (8.5-10.1) Microbiology 11/07/16 Urine Culture - Preliminary, Resulted 11/07/16 Urine Culture Result 1 (LEENA) - Preliminary, Resulted Medication Medications Current Medications Famotidine (Pepcid) 20 mg QHS PO ; Start 11/09/16 at 21:00 Famotidine (Pepcid) 40 mg QHS PO Last administered on 11/08/16 21:05; Start 11/08/16 at 21:00; Stop 11/09/16 at 02:19; Status DC Potassium Chloride (Klor-Con) 10 meq 1X ONCE PO Last administered on 11/09/16 14:07; Start 2/6/17 at 12:45; Stop 11/09/16 at 12:46; Status DC Potassium Chloride (Klor-Con) 10 meq DAILYWBKFT PO ; Start 11/10/16 at 08:00 Comment Review of Relevant I have reviewed the following items gilebrt (where applicable) has been applied. NARESH BELL MD Nov 09, 2016 14:52
--- NOTE | 2016-11-09 18:50 | EEG ---
DATE OF SERVICE: 11/09/2016 EEG NUMBER: [id number] OBJECTIVE: This is a 75-year-old female patient with history of seizure and mental status changes. EEG was requested to evaluate seizure activity. METHODS: Twenty electrodes were applied according to the international 10-20 electrode placement system. EKG monitoring, hyperventilation, intermittent photic stimulation, monopolar and bipolar montages are routinely utilized. The record was obtained on a digital system with video monitoring. FINDINGS: 1. Background: The patient was recorded in the awake and drowsy states. No actual sleep state was recorded. The overall background amplitude is 5-10 microvolts. No clear posterior dominant rhythm is observed. The overall background rhythm is with faster activity in beta frequency. Artifact also noted. 2. Abnormalities: No specific epileptiform discharge or electrographic seizure is seen. A faster activity in beta frequency is throughout the entire recording. 3. Activation: Hyperventilation was not performed because the patient was unable to follow the commands. Intermittent photic stimulation was performed with insignificant photic driving. No specific epileptiform discharge or electrographic seizure induced by intermittent photic stimulation. IMPRESSION: This EEG is an abnormal study for the awake and drowsy states. No actual sleep state was recorded. No clear posterior dominant rhythm is observed. The overall background rhythm is with fast activity in beta frequency. No focal, lateralizing, specific epileptiform discharge or electrographic seizure is seen. Faster activity in beta frequency may be medication effect. NARESH BELL MD DR: ISIAH/rosario JOB#: [id number] / [id number] PATRICIO
[2016-11-09] MEDS: FAMOTIDINE 20 MG TABLET. PO SCH (21:33)
--- NOTE | 2016-11-09 21:35 | ACF ---
Admission Forms Criteria SEIZURE Clinical Indications for Admission to Inpatient Care (Place 'X' for any and all applicable criteria): Admission is indicated for seizure and ANY ONE of the following(1)(2)(3)(4)(5): [X]I. Inpatient admission required rather than observation care (Also use Seizure: Observation Care Criteria as appropriate) because of ANY ONE of the following: [ ]a) Altered mental status that is severe or persistent [ ]b) New focal neurologic deficit that is severe or persistent [ ]c) Metabolic disorder (eg, hypoglycemia, hyponatremia) that is severe or persistent [ ]d) Recurrent seizure [ ]e) Outpatient antiseizure regimen cannot be established (eg , patient cannot tolerate medication, initiation requires inpatient care) [ ]f) Need for ongoing intravenous infusion of antiseizure medication [ ]g) Cardiac arrhythmias of immediate concern [ ]h) Cerebral bleeding, hydrocephalus, or vasospasm monitoring (14) [ ]i) Increased intracranial pressure or cerebral edema monitoring (15) [X]j) Other treatment or monitoring requiring inpatient admission [ ]II. Status epilepticus [A] or repetitive seizures not controlled with emergent treatment (6)(8) [ ]III. Brain disorder (eg, tumor, edema, and hydrocephalus) that requiring monitoring or intervention available only at inpatient level of care. [ ]IV. Brain insult (eg, severe trauma, stroke, drug toxicity, or withdrawal) that requires monitoring or intervention available only at inpatient level of care (10)(11) Extended stay beyond goal length of stay may be needed for (22) [ ]a) Complications of status epilepticus [ ]b) Refractory status epilepticus [ ]c) Etiology-specific therapy for conditions such as [employer] infection, head injury,eclampsia, severe metabolic abnormalities, and brain tumor [ ]d) Residual neurologic damage, [ ]e) Initiation of significant change to anticonvulsant treatment [ ]f) Older patients (65 years or older) [ ]g) Patient requiring intubation (eg, to protect airway) The original [employer] content created by [employer] has been revised. The portions of the content which have been revised are identified through the use of italic text or in bold, and [facility] has neither reviewed nor approved the modified material. All other unmodified content is copyright [facility]. Please see references footnoted in the original [facility] edition 2016 Admission Criteria Met?: Yes KOTA POPE Nov 09, 2016 21:35
[2016-11-10 07:28] VITALS: BP 147/82
[2016-11-10] MEDS ORDERED: POTASSIUM CHLORIDE 10 MEQ TABLET.ER. PO SCH (08:00)
[2016-11-10] MEDS: LEVETIRACETAM 500 MG TABLET PO SCH ×2 (08:13→20:36)
[2016-11-10 09:24] LABS: HEMATOCRIT 30.9 % (36.0-47.0); HEMOGLOBIN 10.5 g/dL (12.0-15.5); RED BLOOD COUNT 3.29 x10^6/uL (3.50-5.40); RED CELL DISTRIBUTION WIDTH 14.6 % (11.5-14.5); WHITE BLOOD COUNT 4.9 x10^3/uL (4.0-11.0)
[2016-11-10 09:38] LABS: CALCIUM 8.8 mg/dL (8.5-10.1); CREATININE 1.1 mg/dL (0.6-1.0); GFR 48.4; POTASSIUM 3.3 mmol/L (3.5-5.1)
[2016-11-10 10:26] VITALS: BP 142/85
--- NOTE | 2016-11-10 11:53 | PDOC ---
PROGRESS NOTES Subjective Subjective Pt awake and pleasant this am. Dementia present with overall confusion. Pt states she is eating and drinking well with good output. Objective Objective Pt awake and alert. NAD. VSS. Afebrile. Lungs CTA bilat. Resp even and unlabored. Heart with RRR. No murmurs. Vital Signs Date Time Temp Pulse Resp B/P Pulse Ox O2 Delivery O2 Flow Rate FiO2 11/10/16 10:26 99.2 77 17 142/85 97 Room Air 99.2 11/09/16 14:48 2.0 Intake and Output 11/10/16 07:00 # Voids 7 Assessment Assessment Problems Medical Problems: (1) Seizure Status: Acute Plan Plan of Care 1. Epilepsy -Neurology consulting -Pt on [facility] -Head CT: No acute intracranial CT abnormality. Stable exam. 2. Hypertension -Add Norvasc 5mg qd 3. Hypokalemia -K 3.5 upon admission, 3.3 this am. -Increase KCL to 20mEq qam -Recheck BMP in am 4. ARF -Creat 1.2 upon admission, 1.1 this am 5. UTI, cx with E.Coli -Start Macrobid 100mg bid x7 days Will follow Neuros lead on Dc as pt is medically stable from a PCP standpoint. Comment Review of Relevant I have reviewed the following items gilbert (where applicable) has been applied. Labs Laboratory Tests Test 11/08/16 11:45 11/09/16 06:20 11/10/16 08:35 Thyroid Stimulating Hormone (TSH) 1.011uIU/mL (0.358-3.74) White Blood Count 4.3x10^3/uL (4.0-11.0) 4.9x10^3/uL (4.0-11.0) Red Blood Count 2.77x10^6/uL (3.50-5.40) 3.29x10^6/uL (3.50-5.40) Hemoglobin 8.8g/dL (12.0-15.5) 10.5g/dL (12.0-15.5) Hematocrit 26.2% (36.0-47.0) 30.9% (36.0-47.0) Mean Corpuscular Volume 95fL (79-100) 94fL (79-100) Mean Corpuscular Hemoglobin 32pg (25-35) 32pg (25-35) Mean Corpuscular Hemoglobin Concent 34g/dL (31-37) 34g/dL (31-37) Red Cell Distribution Width 14.5% (11.5-14.5) 14.6% (11.5-14.5) Platelet Count 101x10^3/uL (140-400) 113x10^3/uL (140-400) Neutrophils (%) (Auto) 51% (31-73) Lymphocytes (%) (Auto) 37% (24-48) Monocytes (%) (Auto) 10% (0-9) Eosinophils (%) (Auto) 1% (0-3) Basophils (%) (Auto) 1% (0-3) Neutrophils # (Auto) 2.2x10^3uL (1.8-7.7) Lymphocytes # (Auto) 1.6x10^3/uL (1.0-4.8) Monocytes # (Auto) 0.4x10^3/uL (0.0-1.1) Eosinophils # (Auto) 0.1x10^3/uL (0.0-0.7) Basophils # (Auto) 0.0x10^3/uL (0.0-0.2) Sodium Level 144mmol/L (136-145) 143mmol/L (136-145) Potassium Level 3.4mmol/L (3.5-5.1) 3.3mmol/L (3.5-5.1) Chloride Level 111mmol/L (98-107) 110mmol/L (98-107) Carbon Dioxide Level 25mmol/L (21-32) 26mmol/L (21-32) Anion Gap 8 (6-14) 7 (6-14) Blood Urea Nitrogen 28mg/dL (7-20) 32mg/dL (7-20) Creatinine 1.5mg/dL (0.6-1.0) 1.1mg/dL (0.6-1.0) Estimated GFR (Cockcroft-Gault) 33.9 48.4 Glucose Level 94mg/dL (70-99) 98mg/dL (70-99) Calcium Level 8.6mg/dL (8.5-10.1) 8.8mg/dL (8.5-10.1) Laboratory Tests Test 11/10/16 08:35 White Blood Count 4.9x10^3/uL (4.0-11.0) Red Blood Count 3.29x10^6/uL (3.50-5.40) Hemoglobin 10.5g/dL (12.0-15.5) Hematocrit 30.9% (36.0-47.0) Mean Corpuscular Volume 94fL (79-100) Mean Corpuscular Hemoglobin 32pg (25-35) Mean Corpuscular Hemoglobin Concent 34g/dL (31-37) Red Cell Distribution Width 14.6% (11.5-14.5) Platelet Count 113x10^3/uL (140-400) Sodium Level 143mmol/L (136-145) Potassium Level 3.3mmol/L (3.5-5.1) Chloride Level 110mmol/L (98-107) Carbon Dioxide Level 26mmol/L (21-32) Anion Gap 7 (6-14) Blood Urea Nitrogen 32mg/dL (7-20) Creatinine 1.1mg/dL (0.6-1.0) Estimated GFR (Cockcroft-Gault) 48.4 Glucose Level 98mg/dL (70-99) Calcium Level 8.8mg/dL (8.5-10.1) Microbiology 11/07/16 Urine Culture - Final, Complete 11/07/16 Urine Culture Result 1 (LEENA) - Final, Complete 11/07/16 Antimicrobic Susceptibility - Final, Complete Medications Current Medications Sodium Chloride (Iv Sodium Chloride 0.9% 500ml Bag) 500 ml @ 500 mls/hr 1X ONCE IV Last administered on 11/07/16t 22:40; Start 11/07/16 at 22:30; Stop at 23:29; Status DC Ondansetron HCl (Zofran) 4 mg PRN Q8HRS PRN IV NAUSEA/VOMITING; Start 11/08/16 at 01:45; Stop 11/09/16 at 01:44; Status DC Acetaminophen (Tylenol) 650 mg PRN Q4HRS PRN PO FEVER; Start 11/08/16 at 01:45; Stop 11/09/16 at 01:44; Status DC Levetiracetam (Keppra) 500 mg BID PO Last administered on 11/10/16 08:13; Start 11/08/16 at 12:00 Famotidine (Pepcid) 40 mg QHS PO Last administered on 11/08/16 21:05; Start 11/08/16 at 21:00; Stop 11/09/16 at 02:19; Status DC Famotidine (Pepcid) 20 mg QHS PO Last administered on 11/09/16 21:33; Start 11/09/16 at 21:00 Potassium Chloride (Klor-Con) 10 meq DAILYWBKFT PO Last administered on 08:13; Start 11/10/16 at 08:00 Potassium Chloride (Klor-Con) 10 meq 1X ONCE PO Last administered on 11/09/16 14:07; Start 11/09/16 at 12:45; Stop 11/09/16 at 12:46; Status DC Active Scripts Active Pepcid (Famotidine) 40 Mg Tablet 40 Mg PO HS Reported Ventolin Hfa Inhaler (Albuterol Sulfate) 18 Gm Hfa.aer.ad 18 Gm IH DAILY Levetiracetam 500 Mg Tablet 500 Mg PO DAILY Vitals/I & O Vital Sign - Last 24 Hours 11/09/16 11/09/16 11/09/16 11/09/16 14:47 14:48 19:00 20:00 Temp 98.8 99.5 98.8 99.5 Pulse 79 83 Resp 16 B/P 129/83 134/81 Pulse Ox 98 96 O2 Delivery Room Air Room Air Room Air Room Air O2 Flow Rate 2.0 11/09/16 11/10/16 11/10/16 11/10/16 23:19 07:28 08:00 10:26 Temp 99.0 99.0 99.2 99.0 99.0 99.2 Pulse 79 78 77 Resp B/P 153/84 147/82 142/85 Pulse Ox 97 97 97 O2 Delivery Room Air Room Air Room Air Room Air DARYL THOMPSON MD Nov 10, 2016 11:53
[2016-11-10 14:12] VITALS: BP 137/78
--- NOTE | 2016-11-10 15:02 | PDOC ---
PROGRESS NOTES Assessment Assessment Seizure. Metabolic encephalopathy. UTI HTN Dementia Schizophrenia. Benzo positive in system, but unknown her meds hx. RECOMMENDATIONS/PLAN: Continue Keppra 500 mg bid. Treat UTI per floor team Treat medical diseases per floor team. EEG on 11/09/16: Fasting activity maybe meds effects. No seizure activity. HISTORY OF THE PRESENT ILLNESS: 75-y-old female patient with Hx of seizures and has been treated with Keppra. She was reportedly to have 2 seizures on 11/07 to be brought to the ER of [facility]. No detailed information is available about her seizure. She is significantly demented and is unable to provide history. Her mentation significantly improved since 11/09. PAST MEDICAL HISTORY: Please see above. PAST SURGERY HISTORY: . ALLERGY: Unknown MEDICATIONS: Refer to [facility] HISTORY: Non contributory. SOCIAL HISTORY: Unknown her status of smoking, drinking, and illicit drug use. REVIEW OF SYSTEMS: Constitutional: Mild malnutrition. Head: No recent traumatic brain or head injury. Skin: No edema, or rash. Ear: No infection, tinnitus. Eyes: No vision loss or color blindness. Nose: No bleeding or purulent discharges. Hearing: No hearing decrease. Neck: No injury. Breast: No history of cancer, masses,or discharges. Cardiac: HTN Pulmonary: No current pneumonia. GI: No GI ulcer, GI bleeding. Urinary/genital: UTI. Endocrinologic: No cousin face, craniofacial dysmorphism, polydactyly. Skeletomuscular: Generalized weakness. Neurological: see HP. Psychiatric: Denies drug use/abuse. Otherwise, not [id number] review of systems. PHYSICAL EXAMINATION: General appearance is in subacute distress. HEENT: Normocephalic and nontraumatic. Eyes, nose, ears, and throat are unremarkable. Neck is supple. No lymphadenopathy.No crepitus. Cardiovascular: S1, S2, regular rate and rhythm. Pulmonary: Relative clear to auscultation bilaterally. Abdomen: Bowel sounds are positive. Extremities: No rash, lesions, or edema. No restriction of range of motion NEUROLOGICAL EXAMINATION: Sleepiness but arouable. Not fully oriented to time, place and person. PERRL. EOMI. Horizontal nystagmus noted. CN: no acute focal findings. Muscle tone: within normal. Muscle strength: 4+ DTR: 2- Plantar reflex: Neutral response bilaterally Gait: not examined in bed. Sensory exam: no acute abnormal findings. No acute cerebellar signs elicited except a few bits of nystagmus.. She was not able to perform F-T-N test. Objective Objective Vital Signs Date Time Temp Pulse Resp B/P Pulse Ox O2 Delivery O2 Flow Rate FiO2 11/10/16 14:12 98.9 74 18 137/78 96 Room Air 98.9 11/09/16 14:48 2.0 Vitals Signs Vitals VS - Last 72 Hours, by Label Date Time Temp Pulse Resp B/P Pulse Ox O2 Delivery O2 Flow Rate FiO2 11/10/16 14:12 98.9 74 18 137/78 96 Room Air 98.9 11/10/16 10:26 99.2 77 17 142/85 97 Room Air 99.2 11/10/16 08:00 Room Air 11/10/16 07:28 99.0 78 17 147/82 97 Room Air 99.0 11/09/16 23:19 99.0 79 17 153/84 97 Room Air 99.0 11/09/16 20:00 Room Air 11/09/16 19:00 99.5 83 16 134/81 96 Room Air 99.5 11/09/16 14:48 Room Air 2.0 11/09/16 14:47 98.8 79 129/83 98 Room Air 98.8 11/09/16 10:37 99.3 78 16 144/88 97 Room Air 99.3 11/09/16 10:06 98.8 68 16 143/79 98 Room Air 98.8 11/09/16 08:00 Room Air 11/09/16 07:05 99.5 80 18 145/88 96 Room Air 99.5 Laboratory Laboratory Laboratory Tests Test 11/10/16 08:35 White Blood Count 4.9x10^3/uL (4.0-11.0) Red Blood Count 3.29x10^6/uL (3.50-5.40) Hemoglobin 10.5g/dL (12.0-15.5) Hematocrit 30.9% (36.0-47.0) Mean Corpuscular Volume 94fL (79-100) Mean Corpuscular Hemoglobin 32pg (25-35) Mean Corpuscular Hemoglobin Concent 34g/dL (31-37) Red Cell Distribution Width 14.6% (11.5-14.5) Platelet Count 113x10^3/uL (140-400) Sodium Level 143mmol/L (136-145) Potassium Level 3.3mmol/L (3.5-5.1) Chloride Level 110mmol/L (98-107) Carbon Dioxide Level 26mmol/L (21-32) Anion Gap 7 (6-14) Blood Urea Nitrogen 32mg/dL (7-20) Creatinine 1.1mg/dL (0.6-1.0) Estimated GFR (Cockcroft-Gault) 48.4 Glucose Level 98mg/dL (70-99) Calcium Level 8.8mg/dL (8.5-10.1) Microbiology 11/07/16 Urine Culture - Final, Complete 11/07/16 Urine Culture Result 1 (LEENA) - Final, Complete 11/07/16 Antimicrobic Susceptibility - Final, Complete Medication Medications Current Medications Famotidine (Pepcid) 20 mg QHS PO Last administered on 11/09/16 21:33; Start 11/09/16 at 21:00 Nitrofurantoin Macrocrystals (Macrobid) 100 mg BID PO ; Start 11/10/16 at 21:00 Potassium Chloride (Klor-Con) 10 meq DAILYWBKFT PO Last administered on 08:13; Start 11/10/16 at 08:00; Stop 11/10/16 at 11:43; Status DC Potassium Chloride (Klor-Con) 20 meq DAILYWBKFT PO ; Start 11/11/16 at 08:00 Comment Review of Relevant I have reviewed the following items gilbert (where applicable) has been applied. NARESH BELL MD Nov 10, 2016 15:02
[2016-11-10 19:00] VITALS: BP 137/87
[2016-11-10] MEDS: NITROFURANTOIN MONOHYD/M-CRYST 100 MG CAPSULE. PO SCH (20:36)
[2016-11-10] MEDS: FAMOTIDINE 20 MG TABLET. PO SCH (20:36)
[2016-11-10 22:42] VITALS: BP 156/97
[2016-11-11 07:00] VITALS: BP 156/85
[2016-11-11] MEDS: POTASSIUM CHLORIDE 20 MEQ TABLET.ER. PO SCH (08:20)
[2016-11-11] MEDS: LEVETIRACETAM 500 MG TABLET PO SCH ×2 (08:20→21:46)
[2016-11-11] MEDS: NITROFURANTOIN MONOHYD/M-CRYST 100 MG CAPSULE. PO SCH ×2 (08:20→21:46)
[2016-11-11] MEDS: AMLODIPINE BESYLATE 5 MG TABLET PO SCH (09:12)
--- NOTE | 2016-11-11 09:49 | PDOC ---
SUBJECTIVE Subjective seems confused , could not get an answer from her OBJECTIVE Objective Bp up Vital Signs Vital Signs Date Time Temp Pulse Resp B/P Pulse Ox O2 Delivery O2 Flow Rate FiO2 11/11/16 09:12 66 156/85 11/10/16 22:42 98.9 72 16 156/97 98 Room Air 98.9 11/10/16 20:00 Room Air 11/10/16 19:00 98.9 90 16 137/87 99 Room Air 98.9 11/10/16 14:12 98.9 74 18 137/78 96 Room Air 98.9 11/10/16 10:26 99.2 77 17 142/85 97 Room Air 99.2 I & O Intake and Output 11/11/16 07:00 Intake Total 700 ml Balance 700 ml Intake Oral 700 ml # Voids 6 PHYSICAL EXAM Physical Exam lungs decrease BS heart RRR abd soft ext no edema ASSESSMENT/PLAN Assessment/Plan 1. Epilepsy -Pt on Keppra -Head CT: No acute intracranial CT abnormality. EEG neg 2. Hypertension -Add Norvasc 5mg qd 3. Hypokalemia -better today 4. ARF -improved 5. UTI, cx with E.Coli -on Macrobid 100mg bid x7 days discharge in AM if no further seizure Problems: MCKENNA BROWN MD Nov 11, 2016 09:49
[2016-11-11 10:58] VITALS: BP 153/83
--- NOTE | 2016-11-11 11:55 | PDOC ---
PROGRESS NOTES Assessment Assessment Seizure. Metabolic encephalopathy. UTI HTN Dementia Schizophrenia. Benzo positive in system, but unknown her meds hx. RECOMMENDATIONS/PLAN: Continue Keppra 500 mg bid. Treat UTI per floor team Treat medical diseases per floor team. EEG on 11/09/16: Fasting activity maybe meds effects. No seizure activity. HCT on 11/07/16: No acute findings. HISTORY OF THE PRESENT ILLNESS: 75-y-old female patient with Hx of seizures and has been treated with Keppra. She was reportedly to have 2 seizures on 11/07 to be brought to the ER of [facility]. No detailed information is available about her seizure. She is significantly demented and is unable to provide history. Her mentation improved since 11/09. PAST MEDICAL HISTORY: Please see above. PAST SURGERY HISTORY: . ALLERGY: Unknown MEDICATIONS: Refer to [facility] HISTORY: Non contributory. SOCIAL HISTORY: Unknown her status of smoking, drinking, and illicit drug use. REVIEW OF SYSTEMS: Constitutional: Mild malnutrition. Head: No recent traumatic brain or head injury. Skin: No edema, or rash. Ear: No infection, tinnitus. Eyes: No vision loss or color blindness. Nose: No bleeding or purulent discharges. Hearing: No hearing decrease. Neck: No injury. Breast: No history of cancer, masses,or discharges. Cardiac: HTN Pulmonary: No current pneumonia. GI: No GI ulcer, GI bleeding. Urinary/genital: UTI. Endocrinologic: No cousin face, craniofacial dysmorphism, polydactyly. Skeletomuscular: Generalized weakness. Neurological: see HP. Psychiatric: Denies drug use/abuse. Otherwise, not -fcajt review of systems. PHYSICAL EXAMINATION: General appearance is in subacute distress. HEENT: Normocephalic and nontraumatic. Eyes, nose, ears, and throat are unremarkable. Neck is supple. No lymphadenopathy.No crepitus. Cardiovascular: S1, S2, regular rate and rhythm. Pulmonary: Relative clear to auscultation bilaterally. Abdomen: Bowel sounds are positive. Extremities: No rash, lesions, or edema. No restriction of range of motion NEUROLOGICAL EXAMINATION: Sleepiness but arouable. Not oriented to time, place and person. PERRL. EOMI. Horizontal nystagmus noted. CN: no acute focal findings. Muscle tone: within normal. Muscle strength: 4+ DTR: 2- Plantar reflex: Neutral response bilaterally Gait: not examined in bed. Sensory exam: no acute abnormal findings. No acute cerebellar signs elicited except a few bits of nystagmus.. She was not able to perform F-T-N test. Objective Objective Vital Signs Date Time Temp Pulse Resp B/P Pulse Ox O2 Delivery O2 Flow Rate FiO2 11/11/16 10:58 97.8 78 16 153/83 98 Room Air 97.8 11/11/16 08:00 2.0 Intake and Output 11/11/16 07:00 Intake Total 700 ml Balance 700 ml Intake Oral 700 ml # Voids 6 Vitals Signs Vitals VS - Last 72 Hours, by Label Date Time Temp Pulse Resp B/P Pulse Ox O2 Delivery O2 Flow Rate FiO2 11/11/16 10:58 97.8 78 16 153/83 98 Room Air 97.8 11/11/16 09:12 66 156/85 11/11/16 08:00 Room Air 2.0 11/11/16 07:00 97.6 66 20 156/85 99 Room Air 97.6 11/10/16 22:42 98.9 72 16 156/97 98 Room Air 98.9 11/10/16 20:00 Room Air 11/10/16 19:00 98.9 90 16 137/87 99 Room Air 98.9 11/10/16 14:12 98.9 74 18 137/78 96 Room Air 98.9 11/10/16 10:26 99.2 77 17 142/85 97 Room Air 99.2 11/10/16 08:00 Room Air 11/10/16 07:28 99.0 78 17 147/82 97 Room Air 99.0 Laboratory Laboratory Microbiology 11/07/16 Urine Culture - Final, Complete 11/07/16 Urine Culture Result 1 (LEENA) - Final, Complete 11/07/16 Antimicrobic Susceptibility - Final, Complete Medication Medications Current Medications Amlodipine Besylate (Norvasc) 5 mg DAILY PO Last administered on 11/11/16 09:12 ; Start 11/11/16 at 09:00 Nitrofurantoin Macrocrystals (Macrobid) 100 mg BID PO Last administered on 08:20; Start 11/10/16 at 21:00 Potassium Chloride (Klor-Con) 20 meq DAILYWBKFT PO Last administered on 2/8/ 17at 08:20; Start 11/11/16 at 08:00 Comment Review of Relevant I have reviewed the following items gilbert (where applicable) has been applied. NARESH BELL MD Nov 11, 2016 11:55
[2016-11-11 15:00] VITALS: BP 134/63
[2016-11-11 19:00] VITALS: BP 147/78
[2016-11-11] MEDS: FAMOTIDINE 20 MG TABLET. PO SCH (21:46)
[2016-11-11 23:00] VITALS: BP 130/83
[2016-11-12 03:00] VITALS: BP 123/75
[2016-11-12 05:22] LABS: RED BLOOD COUNT 2.8 x10^6/uL (3.50-5.40); RED CELL DISTRIBUTION WIDTH 14.5 % (11.5-14.5); WHITE BLOOD COUNT 3.8 x10^3/uL (4.0-11.0)
[2016-11-12 05:40] LABS: CALCIUM 8.6 mg/dL (8.5-10.1); CREATININE 1.2 mg/dL (0.6-1.0); GFR 43.8; POTASSIUM 4.2 mmol/L (3.5-5.1)
[2016-11-12 07:43] VITALS: BP 143/83
[2016-11-12] MEDS: NITROFURANTOIN MONOHYD/M-CRYST 100 MG CAPSULE. PO SCH (09:14)
[2016-11-12] MEDS: POTASSIUM CHLORIDE 20 MEQ TABLET.ER. PO SCH (09:15)
[2016-11-12] MEDS: AMLODIPINE BESYLATE 5 MG TABLET PO SCH (09:15)
[2016-11-12] MEDS: LEVETIRACETAM 500 MG TABLET PO SCH (09:15)
[2016-11-12 10:19] VITALS: BP 129/88
--- NOTE | 2016-11-12 13:06 | PDOC ---
SUBJECTIVE Subjective stable , confused like her base line , no further seizures OBJECTIVE Objective VSS Vital Signs Vital Signs Date Time Temp Pulse Resp B/P Pulse Ox O2 Delivery O2 Flow Rate FiO2 11/12/16 10:19 98.2 80 20 129/88 99 Room Air 98.2 11/12/16 09:15 79 143/83 11/12/16 07:43 97.9 79 17 143/83 99 Room Air 97.9 11/12/16 03:00 98.1 73 18 123/75 99 98.1 11/11/16 23:00 99.2 83 20 130/83 95 99.2 11/11/16 20:00 Room Air 11/11/16 19:00 98.5 83 20 147/78 97 98.5 11/11/16 15:00 97.9 79 18 134/63 97 Room Air 97.9 I & O Intake and Output 11/12/16 07:00 Intake Total 480 ml Balance 480 ml Intake Oral 480 ml # Voids 7 PHYSICAL EXAM Physical Exam no change ASSESSMENT/PLAN Assessment/Plan discharge home with home health Problems: COMMENT Lab Laboratory Tests Test 11/12/16 04:35 White Blood Count 3.8x10^3/uL (4.0-11.0) Red Blood Count 2.80x10^6/uL (3.50-5.40) Hemoglobin 9.0g/dL (12.0-15.5) Hematocrit 27.0% (36.0-47.0) Mean Corpuscular Volume 96fL (79-100) Mean Corpuscular Hemoglobin 32pg (25-35) Mean Corpuscular Hemoglobin Concent 33g/dL (31-37) Red Cell Distribution Width 14.5% (11.5-14.5) Platelet Count 106x10^3/uL (140-400) Sodium Level 143mmol/L (136-145) Potassium Level 4.2mmol/L (3.5-5.1) Chloride Level 109mmol/L (98-107) Carbon Dioxide Level 26mmol/L (21-32) Anion Gap 8 (6-14) Blood Urea Nitrogen 47mg/dL (7-20) Creatinine 1.2mg/dL (0.6-1.0) Estimated GFR (Cockcroft-Gault) 43.8 Glucose Level 93mg/dL (70-99) Calcium Level 8.6mg/dL (8.5-10.1) MCKENNA BROWN MD Nov 12, 2016 13:06
[2016-11-12] MEDS ORDERED: AMLO5TAB2 PO (13:09)
[2016-11-12] MEDS ORDERED: NITR100C6 PO (13:09)
[2016-11-12] MEDS ORDERED: LEVE500T6 PO (13:09)
--- NOTE | 2016-11-12 13:16 | PDOC3 ---
Discharge Summary* Date of Admission: Nov 08, 2016 Date of Discharge: Nov 12, 2016 Admitting Diagnosis Problems Medical Problems: (1) Seizure Status: Acute Final Diagnosis 1. Epilepsy EEG/ CT head neg , Keppra dose increased 2. Hypertension -started Norvasc 5mg qd 3. Hypokalemia -resolved 4. ARF -improved 5. UTI, cx with E.Coli -on Macrobid 100mg bid x7 days Problems Medical Problems: (1) Seizure Status: Acute CONSULTS Neurology Dr. Juan Procedures CT head CXR EEG Brief Hospital Course Ms. Salcedo is a 75 old [sex] who presented with [ ] Disposition/Orders: D/C to Home w/ HH CONDITION AT DISCHARGE: Improved Diet: Cardiac Scheduled Albuterol Sulfate (Ventolin Hfa Inhaler) 18 GM IH DAILY (Reported) Amlodipine Besylate (Amlodipine Besylate) 5 MG PO DAILY Famotidine (Pepcid) 40 MG PO HS Levetiracetam (Levetiracetam) 500 MG PO BID Nitrofurantoin Monohyd/M-Cryst (Nitrofurantoin [place]-Mcr 100 Mg) 100 MG PO BID FOLLOW UP APPOINTMENT: Dr. Robbins in 2 weeks Time Spent Total time spent with patient [] minutes for coordination of care, counseling, and education. MCKENNA BROWN MD Nov 12, 2016 13:16
[2016-11-12 15:09] VITALS: BP 144/86
--- NOTE | 2016-11-12 17:52 | PDOC ---
PROGRESS NOTES Assessment Assessment Seizure. Metabolic encephalopathy. UTI HTN Dementia Schizophrenia. Benzo positive in system, but unknown her meds hx. RECOMMENDATIONS/PLAN: Continue Keppra 500 mg bid. Treat UTI per floor team Treat medical diseases per floor team. Replacement. EEG on 11/09/16: Fasting activity maybe meds effects. No seizure activity. HCT on 11/07/16: No acute findings. HISTORY OF THE PRESENT ILLNESS: 75-y-old female patient with Hx of seizures and has been treated with Keppra. She was reportedly to have 2 seizures on 11/07 to be brought to the ER of [facility]. No detailed information is available about her seizure. She is significantly demented and is unable to provide history. Her mentation improved since 11/09. PAST MEDICAL HISTORY: Please see above. PAST SURGERY HISTORY: . ALLERGY: Unknown MEDICATIONS: Refer to [facility] HISTORY: Non contributory. SOCIAL HISTORY: Unknown her status of smoking, drinking, and illicit drug use. REVIEW OF SYSTEMS: Constitutional: Mild malnutrition. Head: No recent traumatic brain or head injury. Skin: No edema, or rash. Ear: No infection, tinnitus. Eyes: No vision loss or color blindness. Nose: No bleeding or purulent discharges. Hearing: No hearing decrease. Neck: No injury. Breast: No history of cancer, masses,or discharges. Cardiac: HTN Pulmonary: No current pneumonia. GI: No GI ulcer, GI bleeding. Urinary/genital: UTI. Endocrinologic: No cousin face, craniofacial dysmorphism, polydactyly. Skeletomuscular: Generalized weakness. Neurological: see HP. Psychiatric: Denies drug use/abuse. Otherwise, not [id number] review of systems. PHYSICAL EXAMINATION: General appearance is in no acute distress. HEENT: Normocephalic and nontraumatic. Eyes, nose, ears, and throat are unremarkable. Neck is supple. No lymphadenopathy.No crepitus. Cardiovascular: S1, S2, regular rate and rhythm. Pulmonary: Relative clear to auscultation bilaterally. Abdomen: Bowel sounds are positive. Extremities: No rash, lesions, or edema. No restriction of range of motion NEUROLOGICAL EXAMINATION: Awake. Sitting in chair. Laugh for no reason. Not oriented to time, place and person. PERRL. EOMI. Horizontal nystagmus noted. CN: no acute focal findings. Muscle tone: within normal. Muscle strength: 4+ DTR: 2- Plantar reflex: Neutral response bilaterally Gait: not examined in chair. Sensory exam: no acute abnormal findings. No acute cerebellar signs elicited except a few bits of nystagmus.. She was not able to perform F-T-N test. Objective Objective Vital Signs Date Time Temp Pulse Resp B/P Pulse Ox O2 Delivery O2 Flow Rate FiO2 11/12/16 15:09 98.5 86 17 144/86 98 Room Air 98.5 11/11/16 08:00 2.0 Intake and Output 11/12/16 07:00 Intake Total 480 ml Balance 480 ml Intake Oral 480 ml # Voids 7 Vitals Signs Vitals VS - Last 72 Hours, by Label Date Time Temp Pulse Resp B/P Pulse Ox O2 Delivery O2 Flow Rate FiO2 11/12/16 15:09 98.5 86 17 144/86 98 Room Air 98.5 11/12/16 10:19 98.2 80 20 129/88 99 Room Air 98.2 11/12/16 09:15 79 143/83 11/12/16 07:43 97.9 79 17 143/83 99 Room Air 97.9 11/12/16 03:00 98.1 73 18 123/75 99 98.1 11/11/16 23:00 99.2 83 20 130/83 95 99.2 11/11/16 20:00 Room Air 11/11/16 19:00 98.5 83 20 147/78 97 98.5 11/11/16 15:00 97.9 79 18 134/63 97 Room Air 97.9 11/11/16 10:58 97.8 78 16 153/83 98 Room Air 97.8 11/11/16 09:12 66 156/85 11/11/16 08:00 Room Air 2.0 11/11/16 07:00 97.6 66 20 156/85 99 Room Air 97.6 Laboratory Laboratory Laboratory Tests Test 11/12/16 04:35 White Blood Count 3.8x10^3/uL (4.0-11.0) Red Blood Count 2.80x10^6/uL (3.50-5.40) Hemoglobin 9.0g/dL (12.0-15.5) Hematocrit 27.0% (36.0-47.0) Mean Corpuscular Volume 96fL (79-100) Mean Corpuscular Hemoglobin 32pg (25-35) Mean Corpuscular Hemoglobin Concent 33g/dL (31-37) Red Cell Distribution Width 14.5% (11.5-14.5) Platelet Count 106x10^3/uL (140-400) Sodium Level 143mmol/L (136-145) Potassium Level 4.2mmol/L (3.5-5.1) Chloride Level 109mmol/L (98-107) Carbon Dioxide Level 26mmol/L (21-32) Anion Gap 8 (6-14) Blood Urea Nitrogen 47mg/dL (7-20) Creatinine 1.2mg/dL (0.6-1.0) Estimated GFR (Cockcroft-Gault) 43.8 Glucose Level 93mg/dL (70-99) Calcium Level 8.6mg/dL (8.5-10.1) Microbiology 11/07/16 Urine Culture - Final, Complete 11/07/16 Urine Culture Result 1 (LEENA) - Final, Complete 11/07/16 Antimicrobic Susceptibility - Final, Complete Comment Review of Relevant I have reviewed the following items gilbert (where applicable) has been applied. NARESH BELL MD Nov 12, 2016 17:52
== END 2016-11-12 18:28 | disposition home health service (06) | DRG 100 ==
LOC: ER 21:47 → 5 SOUTH 11-08 00:31
PROVIDERS: ADMIT Family Medicine; ATTEND Family Medicine
DX: G40.909 Epilepsy, unspecified, not intractable, without status epilepticus (principal); G93.41 Metabolic encephalopathy; N17.9 Acute kidney failure, unspecified; N39.0 Urinary tract infection, site not specified; B96.20 Unspecified Escherichia coli [E. coli] as the cause of diseases classified elsewhere; F03.90 Unspecified dementia, unspecified severity, without behavioral disturbance, psychotic disturbance, mood disturbance, and anxiety; E87.6 Hypokalemia; F20.9 Schizophrenia, unspecified; I10 Essential (primary) hypertension; Z79.899 Other long term (current) drug therapy; Z91.011 Allergy to milk products; Z88.5 Allergy status to narcotic agent; Z88.8 Allergy status to other drugs, medicaments and biological substances; Z91.018 Allergy to other foods
CPT/HCPCS: 36415; 51701; 70450; 71010; 80048; 80053; 81001; 83605; 84443; 84484; 85027; 85610; 85730; 87086; 87186; 93005; 95816; 96360; 96361; G0481; J7040; 97116; 99285-25

== ENCOUNTER 2017-03-05 16:11 | Inpatient (IN) | payer OTHER ==
[~2017-03-05] VITALS: Ht 154.9 cm; Wt 36.3 kg
[~2017-03-05 16:11] MED LIST changes: +AMLO5TAB2 PO; +NITR100C6 PO
[2017-03-05] MEDS ORDERED: IV NORMAL SALINE 1000ML BAG 1,000 ML IV SCH (16:39)
--- NOTE | 2017-03-05 16:42 | PHYS DOC ---
Past Medical History Past Medical History: Dementia, Hypertension, Seizure, Schizophrenia, Other Additional Past Medical Histor: CHRONIC N/V Past Surgical History: Alcohol Use: None Drug Use: None Adult General Chief Complaint Chief Complaint: OTHER COMPLAINTS HPI HPI Patient is a 76 year old female with history of schizophrenia hypertension and chronic nausea and vomiting presents with failure to thrive. The parents both and up in the care of their son for some time but unfortunately the son had a go to the hospital and is presently on life support in another hospital system and is to unable take care of himself. It was discovered that they were in a very dirty home with bedbugs, rats, other rodents a great deal of health. They are not fed himself since some time and they're in a great deal of malnutrition . State agency has come in to help with the family care and provided [id number] care but unfortunately the house and stated living is so dirty that all the providers quit taking unclean situation in the home that did not allow them to complete her job. Patient is now a wasserman of the [facility] and they have asked that she be admitted to the hospital so long-term snf placement can be arranged. This patient has no complaints other than generalized weakness. She denies headache, chest pain, abdominal pain although she is demented she is awake alert and oriented 2 able answer some questions. Considering the cause of altered mental status the following considered. my altered mental status hallucinations differential Primary psychiatric illnesses Schizophrenia, Schizophreniform disorder, Schizoaffective disorder, mood disorders with psychotic features Schizoaffective disorder Delusional disorde, Brief psychotic disorde Schizotypal (personality) disorder Major depressive disorder with psychotic features Bipolar disorder with psychotic feature Delirium A delirium is an acute mental disturbance characterized by problems of attention, confusion, and disorientation. It often presents suddenly and fluctuates in intensity. Delirium frequently is associated with psychotic symptoms and can improve following antipsychotic treatment [Frequent causes of delirium include fluid or electrolyte abnormalities, hypoglycemia, hypoxia, hypercapnea, infections, or medications, substance intoxication or withdrawal Endocrine disorders Thyroid disease, parathyroid disease, adrenal disease. Hepatic and renal disorders Hepatic encephalopathy, uremic encephalopathy Infectious disease HIV, syphilis, herpes simplex encephalitis, Lyme disease, prion disorders Inflammatory or demyelinating disorders Anti-NMDA receptor encephalitis, systemic lupus erythematosus, multiple sclerosis, leukodystrophic. Metabolic disorders or acute processes Wilsons disease, acute intermittent porphyria. Neurodegenerative disorders Alzheimers disease, dementia with Lewy bodies, Parkinsons disease, Huntingtons disease. Neurological Head trauma/traumatic brain injury, space-occupying lesions ( tumors, cysts), seizure disorders; stroke. Vitamin deficiency Vitamin B12 deficiency. [] Although she has no complaint a baseline to last be completed to include urinalysis, CMP, be CBC, mag level, TSH and troponin. She will be admitted to the hospital to the hospitalist service under Dr. Darius Zuñiga Review of Systems Review of Systems Constitutional: States that she is only feeling tired and fatigued. Eyes: Denies change in visual acuity, redness, or eye pain [] HENT: Denies nasal congestion or sore throat [] Respiratory: Denies cough or shortness of breath [] Cardiovascular: No additional information not addressed in HPI [] GI: Denies abdominal pain, nausea, vomiting, bloody stools or diarrhea [] : Denies dysuria or hematuria [] Musculoskeletal: Denies back pain or joint pain [] Integument: Denies rash or skin lesions [] Neurologic: She complains of generalized weakness Current Medications Current Medications Current Medications Medications (Trade) Dose Ordered Sig/Agata Start Time Stop Time Status Last Admin Dose Admin Sodium Chloride 1,000 ml @ 100 mls/hr Q10H 03/05/17 16:53 03/06/17 16:52 Sodium Chloride (Normal Saline Flush) 10 ml QSHIFT PRN 03/05/17 16:45 Allergies Allergies Allergies Coded Allergies Type Severity Reaction Last Updated Verified benztropine mesylate Allergy Intermediate 09/10/14 Yes chocolate flavor Allergy Intermediate 09/10/14 Yes cocaine Allergy Intermediate HIVES 09/10/14 Yes codeine Allergy Intermediate 09/10/14 Yes milk Adverse Reaction Intermediate Nausea and Vomiting 04/19/15 Yes Physical Exam Physical Exam Constitutional: Patient is very soiled very dirty with grease her noted several blood clots clung on her close and person. Consistent with bed bugs collected and disposed of. Patient has considerable amount of fecal material underneath her fingers bilaterally on the backs of her legs and bottom. HENT: Normocephalic, atraumatic, bilateral external ears normal, very poor dentition dry mucous membranes Eyes: PERRLA, EOMI, conjunctiva normal, no discharge. Patient demonstrates arcus senilis Neck: Normal range of motion, no tenderness, supple, no stridor. No bruits noted Cardiovascular:Heart rate regular rhythm, 2 at 6 systolic ejection murmur best heard in left sternal border Lungs & Thorax: Bilateral breath sounds clear to auscultation [] Abdomen: Bowel sounds normal, soft, no tenderness, no masses, no pulsatile masses. [] Skin: Warm, dry, dry skin with no lesions. She has bruises in multiple stages of healing the extensor surfaces of her arms and legs. Back: No tenderness, no CVA tenderness. [] There is no evidence of the cubitus ulcer. Extremities: No tenderness, no cyanosis, no clubbing, ROM intact, no edema. [] She has no ulcers on her heels or bottom. Capillary refills +2, peripheral pulses are strong and brisk +2 Neurologic: Awake alert and oriented 2 normal motor function is SPONTANEOUSLY Psychologic: She seems depressed with abnormal affect Current Patient Data Vital Signs Vital Signs Date Time Temp Pulse Resp B/P (MAP) Pulse Ox O2 Delivery O2 Flow Rate FiO2 03/05/17 16:30 99.2 65 14 149/72 (97) 98 Room Air 99.2 Lab Values Laboratory Tests Test 03/05/17 16:45 White Blood Count 4.2 x10^3/uL (4.0-11.0) Red Blood Count 3.00 x10^6/uL (3.50-5.40) L Hemoglobin 9.6 g/dL (12.0-15.5) L Hematocrit 29.0 % (36.0-47.0) L Mean Corpuscular Volume 97 fL (79-100) Mean Corpuscular Hemoglobin 32 pg (25-35) Mean Corpuscular Hemoglobin Concent 33 g/dL (31-37) Red Cell Distribution Width 14.8 % (11.5-14.5) H Platelet Count 139 x10^3/uL (140-400) L Neutrophils (%) (Auto) 59 % (31-73) Lymphocytes (%) (Auto) 28 % (24-48) Monocytes (%) (Auto) 9 % (0-9) Eosinophils (%) (Auto) 4 % (0-3) H Basophils (%) (Auto) 1 % (0-3) Neutrophils # (Auto) 2.4 x10^3uL (1.8-7.7) Lymphocytes # (Auto) 1.1 x10^3/uL (1.0-4.8) Monocytes # (Auto) 0.4 x10^3/uL (0.0-1.1) Eosinophils # (Auto) 0.2 x10^3/uL (0.0-0.7) Basophils # (Auto) 0.0 x10^3/uL (0.0-0.2) Sodium Level 144 mmol/L (136-145) Potassium Level 4.3 mmol/L (3.5-5.1) Chloride Level 109 mmol/L (98-107) H Carbon Dioxide Level 25 mmol/L (21-32) Anion Gap 10 (6-14) Blood Urea Nitrogen 46 mg/dL (7-20) H Creatinine 1.5 mg/dL (0.6-1.0) H Estimated GFR (Cockcroft-Gault) 33.8 Glucose Level 98 mg/dL (70-99) Calcium Level 8.9 mg/dL (8.5-10.1) Magnesium Level 2.4 mg/dL (1.8-2.4) Total Bilirubin 0.3 mg/dL (0.2-1.0) Direct Bilirubin 0.1 mg/dL (0.0-0.2) Aspartate Amino Transferase (AST) 24 U/L (15-37) Alanine Aminotransferase (ALT) 23 U/L (14-59) Alkaline Phosphatase 145 U/L (46-116) H Troponin I Quantitative < 0.017 ng/mL (0.000-0.055) Total Protein 6.9 g/dL (6.4-8.2) Albumin 3.6 g/dL (3.4-5.0) Thyroid Stimulating Hormone (TSH) 1.431 uIU/mL (0.358-3.74) Laboratory Tests 03/05/17 16:45 Laboratory Tests 03/05/17 16:45 EKG EKG [] Radiology/Procedures Radiology/Procedures [] Course & Med Decision Making Course & Med Decision Making Pertinent Labs and Imaging studies reviewed. (See chart for details) Patient described as disheveled wasting failure to thrive admitted to the hospital medicine service Dr. Darius Zuñiga in order to facilitate transfer to a long-term care facility. Patient is presently under the care of the [facility] and a wasserman of the state given the fact that immediate family is present in the hospital and incapacitated state to make decisions. So complex at this time will be admitted for failure to thrive and dehydration. She does lab demonstrates anemia, dehydration with elevated BUN/creatinine an icy overall malnutrition. Impression: Dehydration, failure to thrive, generalized weakness Disposition admission to the hospital for at least 3 nights to facilitate placement in a long-term care facility. Dragon Disclaimer Dragon Disclaimer This electronic medical record was generated, in whole or in part, using a voice recognition dictation system. Departure Departure Impression: Primary Impression: Generalized weakness Additional Impressions: Failure to thrive Dehydration Disposition: ADMITTED INPATIENT Admitting Physician: Darius Zuñiga Condition: GUARDED Referrals: DARIUS ZUÑIGA MD (PCP) Problem Qualifiers JUSTIN MORGAN MD Mar 05, 2017 16:42
[2017-03-05] MEDS ORDERED: 0.9 % SODIUM CHLORIDE 10 ML DISP.SYRIN. IV PRN (16:45)
[2017-03-05 16:58] LABS: BASO % 1 % (0-3); EOS % 4 % (0-3); HEMOGLOBIN 9.6 g/dL (12.0-15.5); LYMPH # 1.1 x10^3/uL (1.0-4.8); LYMPH % 28 % (24-48); MEAN CORPUSCULAR HEMOGLOBIN 32 pg (25-35); MEAN CORPUSCULAR HGB CONC 33 g/dL (31-37); MEAN CORPUSCULAR VOLUME 97 fL (79-100); MONO % 9 % (0-9); NEUT % 59 % (31-73); PLATELET COUNT 139 x10^3/uL (140-400); RED CELL DISTRIBUTION WIDTH 14.8 % (11.5-14.5); WHITE BLOOD COUNT 4.2 x10^3/uL (4.0-11.0)
[2017-03-05] MEDS ORDERED: ACETAMINOPHEN 325 MG TABLET. PO PRN (17:00)
[2017-03-05] MEDS ORDERED: ONDANSETRON PF 4 MG/2 ML VIAL. IV PRN (17:00)
[2017-03-05 17:09] LABS: CALCIUM 8.9 mg/dL (8.5-10.1); CREATININE 1.5 mg/dL (0.6-1.0); GFR 33.8; POTASSIUM 4.3 mmol/L (3.5-5.1)
[2017-03-05 17:15] LABS: ALBUMIN 3.6 g/dL (3.4-5.0); DIRECT BILIRUBIN 0.1 mg/dL (0.0-0.2); MAGNESIUM 2.4 mg/dL (1.8-2.4); TOTAL BILIRUBIN 0.3 mg/dL (0.2-1.0); TOTAL PROTEIN 6.9 g/dL (6.4-8.2)
[2017-03-05 18:44] VITALS: BP 131/78
[2017-03-05 18:45] VITALS: BP 131/78
[2017-03-05 22:32] LABS: BILIRUBIN,URINE NEGATIVE (NEG); GLUCOSE,URINE NEGATIVE (NEG); NITRITE,URINE POSITIVE (NEG); PH,URINE 6.5; PROTEIN,URINE NEGATIVE (NEG-TRACE); UROBILINOGEN,URINE 0.2 mg/dL (0.2 mg/dL)
[2017-03-05 22:39] LABS: BACTERIA,URINE MANY /HPF (0-FEW); RBC,URINE 0 /HPF (0-2); WBC,URINE 20-40 /HPF (0-4)
[2017-03-05 22:40] LABS: SQUAMOUS EPITHELIAL CELL,UR FEW /LPF
[2017-03-05] MEDS: IV NORMAL SALINE 1000ML BAG 1,000 ML IV SCH (22:47)
[2017-03-05 22:58] VITALS: BP 144/82
--- NOTE | 2017-03-06 02:25 | ACF ---
Admission Forms Criteria GENERAL ADMISSION CRITERIA (Place 'X' for any and all applicable criteria): Admission is indicated for ANY ONE of the following: [ ]I. Hemodynamic instability as indicated by ANY ONE of the following(1)(2) (3)(4)(5): [ ]a) Vital sign abnormality not readily corrected by appropriate treatment within 12 to 24 hours indicated by ANY ONE of the following: [ ]i) Hypotension [ ]ii) Symptomatic Tachycardia unresponsive to treatment (eg , analgesia, fluids, sedation as indicated) [ ]iii) Orthostatic vital sign changes unresponsive to treatment (eg, fluids) [ ]b) Vital sign abnormality that is severe indicated by ANY ONE of the following: [ ]i) Inadequate perfusion indicated by ANY ONE of the following: [ ]1) Lactic acidosis (greater than 2 mmol/L) [ ]2) New abnormal capillary refill (greater than 3 seconds) [ ]3) Other metabolic acidosis (arterial pH less than 7.35) not otherwise explained [ ]4) Reduced urine output [ ]5) Altered mental status [ ]6) Myocardial Ischemia [ ]v) Mean arterial pressure[A] less than 60 mm Hg [ ]vi) Mean arterial pressure[A] less than 70 mm Hg after 30 minutes of appropriate treatment (eg, fluid resuscitation) [ ]vii) IV inotropic or vasopressor medication required to maintain adequate blood pressure or perfusion [ ]viii) Sustained heart rate greater than 120 beats per minute in adult or child 6 years or older[B]] [ ]II. Hypertension requiring inpatient treatment as indicated by ANY ONE of the following(6)(7)(8): [ ]a) SBP greater than 220 mm Hg or DBP greater than 120 mm Hg despite treatment [ ]b) SBP greater than 140 mm Hg or DBP greater than 100 mm Hg with evidence of acute end organ damage as indicated by ANY ONE of the following: [ ]i) Encephalopathy [ ]ii) Acute renal failure as indicated by new onset of ANY ONE of the following(9)(10)(11)(12)(13): [ ]1) A 3-fold rise in serum creatinine from baseline [ ]2) Serum creatinine greater than 4 mg/dL ( 354 micromoles/L) with acute rise greater than 0.5 mg/dL (44.2 micromoles/L) [ ]3) Reduction of more than 75% in estimated glomerular filtration rate from baseline [ ]4) Estimated glomerular filtration rate less than 35 mL/min/1.73m2 (0.59 mL/sec/1.73m2) in child up to 18 years of age [ ]5) Cessation of urine output indicated by ALL of the following: [ ]A. Adequate volume status [ ]B. Inadequate urine output as indicated by ANY ONE of the following: [ ]a. Urine output less than 0.3 mL/kg/hr for 24 hours [ ]b. Anuria (urine output less than 0.1 mL/kg/hr) for 12 hours [ ]iii) Aortic dissection [ ]iv) Myocardial ischemia [ ]v) Left ventricular heart failure [ ]vi) Retinal hemorrhage [ ]vii) Other significant finding [ ]c) Hypertension in child requiring inpatient treatment as indicated by ALL of the following(14)(15)(16): [ ]i) Outpatient treatment not effective, not available, or not appropriate [ ]ii) SBP or DBP greater than 95th percentile for age [ ]iii) Evidence of acute end organ damage as indicated by ANY ONE of the following: [ ]1) Altered mental status [ ]2) Acute renal failure as indicated by new onset of ANY ONE of the following(9)(10)(11)(12)(13): [ ]A. A 3-fold rise in serum creatinine from baseline [ ]B. Serum creatinine greater than 4 mg/dL (354 micromoles/L) with acute rise greater than 0.5 mg/dL (44.2 micromoles/L) [ ]C. Reduction of more than 75% in estimated glomerular filtration rate from baseline [ ]D. Estimated glomerular filtration rate less than 35 mL/min/1.73m2 (0.59 mL/sec/1.73m2)in child up to 18 years of age [ ]E. Cessation of urine output indicated by ALL of the following: [ ]a. Adequate volume status [ ]b. Inadequate urine output as indicated by ANY ONE of the following: [ ]1) Urine output less than 0.3 mL/kg/hr for 24 hours [ ]2) Anuria (urine output less than 0.1 mL/kg/hr) for 12 hours [ ]3) Severe headache [ ]4) Visual disturbance [ ]5) Retinal hemorrhage [ ]6) Other significant finding [ ]III. Acute cardiac or peripheral ischemia as indicated by ANY ONE of the following: [ ]a) Acute coronary syndrome(17)(18) [ ]b) Acute peripheral ischemia (eg, pulseless, cool, mottled, or cyanotic extremity)(19) [ ]IV. Cardiac arrhythmias or findings of immediate concern indicated by ANY ONE of the following(20)(21): [ ]a) Heart rhythms that are inherently dangerous or unstable indicated by ANY ONE of the following(22)(23)(24): [ ]i) Resuscitated ventricular fibrillation or cardiac arrest [ ]ii) Ventricular escape rhythm [ ]iii) Sustained ventricular tachycardia (30 seconds or more of ventricular rhythm at greater than 100 beats per minute) [ ]iv) Nonsustained ventricular tachycardia and ANY ONE of the following: [ ]1) Suspected cardiac ischemia as cause or consequence of ventricular tachycardia [ ]2) In setting of acute myocarditis [ ]b) Unstable cardiac conduction defects indicated by ANY ONE of the following(24)(25)(26): [ ]i) Type II second-degree atrioventricular block [ ]ii) Third-degree atrioventricular block [ ]iii) New-onset left bundle branch block with suspected myocardial ischemia [ ]c) Any heart rhythm and ANY ONE of the following(22)(23)(27)(28)( 29): [ ] i) Continuous long-term ECG monitoring needed (eg, initiation of drug requiring monitoring for more than 24 hours) [ ] ii) Patient has automatic implanted cardioverter defibrillator that is repeatedly firing, malfunctioning, or in need of immediate adjustment of settings beyond the scope of ambulatory or observation care. [ ]d) Heart rhythms of concern due to ANY ONE of the following: [ ]i) Hypotension [ ]ii) Respiratory distress [ ]iii) Association with other significant symptoms (eg, bradycardia with syncope or ongoing dizziness, supraventricular tachycardia with chest pain) (27)(28) (30) [ ] V. Severe heart failure as indicated by ANY ONE of the following ( 31)(32): [ ]a) Respiratory distress [ ]b) Hypotension [ ]c) Anasarca (refractory to outpatient therapy) [ ]d) Cardiac arrhythmias of immediate concern [ ]e) Myocardial ischemia [ ]. Respiratory abnormalities, including ANY ONE of the following(33)(34) (35)(36): [ ]a) Respiratory rate greater than 30 breaths per minute unresponsive to treatment [A] [ ]b) New saturation of arterial oxygen less than 90% [ ]c) New partial pressure of carbon dioxide greater than 44 mm Hg ( 5.9 kPa) [ ]d) Supplemental oxygen or respiratory treatments needed that are new or not performable at other levels of care [ ]e) New-onset cyanosis [ ]f) Inability to protect airway [ ]g) Chronic lung disease with severe deterioration (not responsive to emergency and observation care treatment as appropriate) as indicated by ANY ONE of the following(34)(36 ): [ ]i) SaO2 5% below baseline in patient with chronic hypoxemia [ ]ii) New requirement for supplemental oxygen to keep SaO2 at baseline or acceptable level [ ]iii) Required supplemental oxygen performable only in acute inpatient setting [ ]iv) Severe airflow or ventilation abnormalities [ ]v) Previously mobile patient unable to walk between rooms [ ]vi Inability to eat or sleep due to dyspnea [ ]vii) Rapid rate of exacerbation onset [ ]viii) Altered mental status ]VII. Severe airflow or ventilation abnormalities (not responsive to emergency and observation care treatment as appropriate) as indicated by ANY ONE of the following(33)(34)(35)(37): [ ]a) PCO2 greater than 42 mm Hg (5.6 kPa) and pH less than 7.35 (new ) [ ]b) Documented PCO2 increased more than 5 mm Hg (0.7 kPa) from disease baseline [ ]c) Airflow measurements [B] less than 60% of previous best or predicted (eg, peak expiratory flow rate less than 300 L/minute) despite intensive emergent treatment [C] [ ]d) Required respiratory treatments that are performable only in acute inpatient setting [ ]VIII. Impending or actual respiratory arrest ( Also use Respiratory Failure GRG for severe respiratory disease and long-term mechanical ventilation patients) [ ]IX. Neurologic abnormalities, including ANY ONE of the following: [ ]a) New findings that suggest ANY ONE of the following: [ ]i) [employer] infection(38) [ ]ii) Cerebral bleeding, ischemia, or vasospasm(39)(40) [ ]iii) Increased intracranial pressure, hydrocephalus, or cerebral edema(41)(42)(43) [ ]iv) Spinal cord injury(44) [ ]b) Uncontrolled seizures(45) [ ]c) New-onset coma (eg, Brielle coma scale score less than 9) or unexplained abnormal mental status (eg, Brielle coma scale score less than 14) [D](41)(46)(47) [ ]X. New-onset severe neurologic findings requiring inpatient care; examples include(42)(48)(49): [ ]a) Papilledema [ ]b) Cerebral edema [ ]c) Mass effect on CT scan [ ]XI. Suspected acute intra-abdominal process with peritoneal signs, abdominal mass, or similar findings (50)(51)(52) [X ]XII. Severe physiologic disorder remaining after emergency or observation level care (as appropriate) as indicated by ANY ONE of the following (53): [X ]a) Significant dehydration [ ]b) Diabetic ketoacidosis [ ]c) Hyperglycemic hyperosmolar state (eg, osmolality greater than 320 mOsm/kg (mmol/kg) [ ]d) Hypoglycemia [ ]e) Other (new) acid-base disorder with pH less than 7.35 or greater than 7.5(54) [ ]f) Thyroid storm (55) [ ]g) Myxedema coma (55) [ ]XIII. Abdominal abnormalities with ANY ONE of the following(56)(57): [ ]a) Absent bowel sounds with complete ileus [ ]b) Signs of intestinal obstruction or peritonitis [E] [ ]c) Nausea and vomiting that cannot be controlled with outpatient or observation care [ ]XIV. Acute renal failure as indicated by new onset of ANY ONE of the following(9)(10)(11)(12)(13): [ ]a) A 3-fold rise in serum creatinine from baseline [ ]b) Serum creatinine greater than 4 mg/dL (354 micromoles/L) with acute rise greater than 0.5 mg/dL (44.2 micromoles/L) [ ]c) Reduction of more than 75% in estimated glomerular filtration rate from baseline [ ]d) Estimated glomerular filtration rate less than 35 mL/min/ 1.73m2 (0.59 mL/sec/1.73m2) in child up to 18 years of age [ ]e) Cessation of urine output indicated by ALL of the following: [ ]i) Adequate volume status [ ]ii) Inadequate urine output as indicated by ANY ONE of the following: [ ]1) Urine output less than 0.3 mL/kg/hr for 24 hours [ ]2) Anuria (urine output less than 0.1 mL/kg/hr) for 12 hours [ ]XV. Significant uremic complications as indicated by ANY ONE of the following(58)(59)(60): [ ]a) Outpatient therapy is ineffective or not feasible for ANY ONE of the following: [ ]i) Severe heart failure [ ]ii) Severehypertension [ ]iii) Pleural effusion [ ]iv) Pericarditis or pericardial effusion [ ]b) Cardiac arrhythmias of immediate concern [ ]c) Intractable nausea or vomiting [ ]d) Recurrent seizures [ ]e) Encephalopathy [ ]f) Bleeding abnormalities (eg, platelet dysfunction) with active (eg, gastrointestinal) bleeding [ ]g) Dialysis indicated before long-term access or ambulatory arrangements can be made [ ]h) Significant metabolic or electrolyte abnormalities (eg, severe acidosis or hyperkalemia) [ ]XVI. High fever or other high-risk infection situation as indicated by ANY ONE of the following(61)(62)(63)(64): [ ]a) Outpatient and observation care antimicrobial treatment unavailable, not effective, or not appropriate [ ]b) Documented bacteremia [ ]c) Temperature greater than 40.5 degrees C (104.9 degrees F) ( oral) [ ]d) Temperature greater than 39.5 degrees C (103.1 degrees F) ( oral) or less than 36 degrees C (96.8 degrees F) (rectal) that does not respond to e treatment and observation care [ ] XVII. Temperature less than 95 degrees F (35 degrees C)(rectal)(65) [ ] XVIII. Severe nutritional abnormalities as indicated by ALL of the following (66)(67): [ ]a) Inability to tolerate or establish sufficient oral or other enteral nutrition in outpatient setting [ ]b) Parenteral nutrition regimen need that must be implemented on inpatient basis [ ] XIX. Severe electrolyte abnormalities indicated by ALL of the following(68) (69)(70): [ ]a) Electrolytes and associated findings are not as expected for patient baseline or acceptable treatment effects. [ ]b) Severe abnormalities indicated by ANY ONE of the following: [ ]i) Sodium less than 130 mEq/L (mmol/L) (new) [ ]ii)Sodium less than 135 mEq/L (mmol/L) with ANY ONE of the following: [ ]1) Uncorrectable (to near normal or chronic baseline) after trial of outpatient and emergency treatment [ ]2) Altered mental status [ ]3) Seizures [ ]4) Severe medical etiology requiring inpatient management (eg, heart failure, hypovolemia) [ ]iii) Sodium greater than 155 mEq/L (mmol/L) [ ]iv) Sodium greater than 150 mEq/L (mmol/L) with ANY ONE of the following: [ ]1) Uncorrectable (to near normal or chronic baseline) with outpatient and emergency treatment [ ]2) Altered mental status [ ]3) Seizures [ ]4) Severe medical etiology (eg, hypovolemia, diabetes insipidus) [ ]v) Potassium less than 2.5 mEq/L (mmol/L) despite outpatient and emergency treatment [ ]vi) Potassium less than 3 mEq/L (mmol/L) with ANY ONE of the following: [ ]1) Weakness [ ]2) Cardiac abnormality (eg, arrhythmia, conduction disturbance) [ ]3) Cardiac ischemia [ ]4) Ileus [ ]5) Ongoing medical cause requiring inpatient management (eg, acute renal wasting or SIADH) [ ]6) Other severe symptoms [ ]vii) Potassium greater than 6.5 mEq/L (mmol/L) [ ]viii) Potassium greater than 5 mEq/L (mmol/L) with ANY ONE of the following: [ ]1) Uncorrectable (to near normal or chronic baseline) with outpatient and emergency treatment [ ]2) Severe ECG findings [F] [ ]3) Acute worsening of renal failure (creatinine greater than 2.5 mg/dL (221 micromoles/L) or significant elevation for age and size) [ ]4) Severe weakness [ ]5) Severe medical etiology (eg, hemolysis, infection, drug overdose) [ ]ix) Calcium less than 7 mg/dL (1.75 mmol/L) despite outpatient and emergency treatment (72) [ ]x) Calcium less than 8 mg/dL (2 mmol/L) with significant symptoms or findings; examples include(72): [ ]1) Altered mental status [ ]2) Muscle spasms [ ]3) Seizures [ ]4) Breathing difficulty [ ]5) Cardiac abnormality (eg, arrhythmia or conduction disturbance) [ ]xi) Calcium greater than 14 mg/dL (3.5 mmol/L)(72) [ ]xii) Calcium greater than 12 mg/dL (3 mmol/L) with ANY ONE of the following(72): [ ]1) Uncorrectable (to near normal or chronic baseline) with outpatient and emergency treatment [ ]2) Significant dehydration or hypovolemia as indicated by ALL of the following(70)(73)(74): [ ]A. Not resolved with initial treatments [ ]B. Clinically significant dehydration as indicated by ANY ONE of the following: [ ]a. Vomiting refractory to outpatient treatment (ie, precluding oral rehydration) [ ]b. Inability to drink [ ]c. Hypernatremia or other electrolyte abnormality unable to be corrected with outpatient and emergency treatment [ ]d. Failure to remain hydrated with outpatient therapy [ ]e. Reduced urine output [ ]f. Hypotension [ ]g. Serious cause for dehydration requiring acute hospitalization (eg, bowel obstruction, increased intracranial pressure, infectious cause) [ ]h. Child with ANY ONE of the following(75): [ ]1) Severe abdominal tenderness [ ]2) Adequate care not available at home [ ]3) Severe dehydration ( greater than 9% loss of body weight) [ ]4) Significant symptoms or findings; examples include: [ ]A. Altered mental status [ ]B. Cardiac abnormality (eg, arrhythmia, conduction disturbance) [ ]C. Malignant etiology requiring inpatient treatment [ ]xiii) Phosphorus less than 1 mg/dL (0.32 mmol/L) [ ]xiv) Phosphorus less than 1.5 mg/dL (0.48 mmol/L) with ANY ONE of the following: [ ]1) Patient unresponsive to outpatient and emergency treatment [ ]2) Significant symptoms or findings; examples include: [ ]A. Weakness [ ]B. Altered mental status [ ]C. Breathing difficulty [ ]D. Seizures [ ]E. Rhabdomyolysis [ ]xv) Phosphorus greater than 10 mg/dL (3.2 mmol/L) [ ]xvi) Phosphorus greater than 4.5 mg/dL (1.45 mmol/L) (new) with ANY ONE of the following: [ ]1) Severe medical etiology (eg, crush injury, acute renal failure) [ ]2) Associated hypocalcemia with significant findings; examples include: [ ]A. Neurologic symptoms [ ]B. Altered mental status [ ]C. Muscle spasms [ ]D. Seizures [ ]E. Breathing difficulty [ ]F. Cardiac abnormality (eg, arrhythmia, conduction disturbance) [ ]xvii) Magnesium less than 1 mg/dL (0.41 mmol/L) [ ]xviii) Magnesium less than 1.5 mg/dL (0.62 mmol/L) with ANY ONE of the following: [ ]1) Patient unresponsive to outpatient and emergency treatment [ ]2) Associated hypocalcemia with significant findings; examples include: [ ]A. Altered mental status [ ]B. Muscle spasms [ ]C. Seizures [ ]D. Breathing difficulty [ ]E. Cardiac abnormality (eg, arrhythmia , conduction disturbance) [ ]3) Associated hypokalemia (potassium less than 3 mEq/L (mmol/L)) with risk of arrhythmia [ ]xix) Magnesium greater than 4 mEq/L (2 mmol/L) [ ]xx) Magnesium greater than 2.5 mEq/L (1.25 mmol/L) with significant symptoms or findings; examples include: [ ]1) Weakness [ ]2) Altered mental status [ ]3) Cardiac abnormality (eg, arrhythmia, conduction disturbance) [ ]4) Breathing difficulty [ ]5) Severe medical etiology (eg, renal failure, hypovolemia) [ ]xxi) Uric acid greater than 20 mg/dL (1190 micromoles/L)(76) [ ]xxii) Uric acid greater than 8 mg/dL (476 micromoles/L) with significant symptoms or findings of tumor lysis syndrome; examples include(76): [ ]1) Creatinine greater than 1.5 times upper limit of normal [ ]2) Cardiac abnormality (eg, arrhythmia, conduction disturbance) [ ]3) Seizure [ ]XX. Acute blood loss causing significant abnormality as indicated by ANY ONE of the following(77)(78): [ ]a) Hemoglobin less than 10 g/dL (100 g/L) (not baseline) [ ]b) Hematocrit less than 30% (0.30) (not baseline) [ ]c) Repeat hematocrit decreased more than 2% (0.02) [ ]d) Uncontrolled bleeding [ ]XXI. Severe anemia indicated by ANY ONE of the following(78)(79): [ ]a) Altered mental status [ ]b) Chest pain [ ]c) Exertional dyspnea [ ]d) Syncope [ ]e) Other findings suggesting inadequate perfusion [ ]f) Treatment with transfusion or volume replacement is ineffective at resolving ANY ONE of the following [G]: [ ]i) Tachycardia for age [ ]ii) Orthostatic vital sign changes as indicated by ANY ONE of the following(80): [ ]1) Fall in SBP of 20 mm Hg or more 1 to 3 minutes after patient sits or stands from recumbent position [ ]2) Fall in DBP of 10 mm Hg or more 1 to 3 minutes after patient sits or stands from recumbent position [ ]XXII. High-risk low platelet count as indicated by ANY ONE of the following( 81)(82): [ ]a) Severe or life-threatening bleeding (eg, intracranial, major gastrointestinal, or extensive mucosal bleeding), with any reduced platelet count [ ]b) Platelet count less than 20,000/mm3 (20 x109/L) with any active bleeding [ ]c) Platelet count less than 10,000/mm3 (10 x109/L) with minor purpura or petechiae [ ]d) Platelet count less than 5000/mm3 (5 x109/L) [ ]e) Low platelet count with hemolytic anemia [ ]XXIII. Disseminated intravascular coagulation(77)(83) [ ]XXIV. Severe adverse drug or systemic toxin reaction requiring inpatient treatment; examples include(84)(85): [ ]a) Serotonin syndrome(86) [ ]b) Neuroleptic malignant syndrome(86) [ ]c) Cholinergic syndrome with severe symptoms (eg, bronchorrhea, weakness, mental status changes, seizures) [ ]d) Sympathetic syndrome with severe symptoms (eg, seizures, mental status changes, cardiac dysrhythmias) [ ]e) Anticholinergic syndrome [ ]XXV. Severe pain requiring acute inpatient management as indicated by ALL of the following (87)(88)(89): [ ]a) Continuous or frequent (eg, every 2 to 4 hours) parenteral analgesics required [H] [ ]b) Rapid improvement expected from treatment or acute intervention (eg, surgery, anesthesia procedure) [ ]XXVI.Severe behavioral health issues judged unmanageable at a lower level of care (eg, residential) in a patient who is ANY ONE of the following(91) [ ]a) Acutely suicidal [ ]b) A danger to self (eg, self-mutilating or suicidal behavior) [ ]c) A danger to others (eg, assaultive or homicidal behavior) [ ]d) Incapacitated because of grave disability (eg, inability to provide for self at lower level of care) (92) [ ]XXVII. Inpatient monitoring needed; examples include(1)(3)(87)(93)(94)(95)(96 ): [ ]a) Vital signs, neurologic signs, or vascular checks more frequently than every 4 hours [ ]b) Cardiac or respiratory monitoring beyond the scope (eg, over 24 hours) of observation care [ ]c) Pulmonary artery catheter monitoring [ ]d) Suspected compartment syndrome(97) (98) [ ]e) Cerebral bleeding, hydrocephalus, or vasospasm monitoring [ ]f) Increased intracranial pressure or cerebral edema monitoring [ ]g) monitoring [ ]XXVIII. Treatment requiring inpatient care; examples include: [ ]a) IV fluid to replace significant ongoing losses (greater than 3 L/m2 per day)(53) [ ]b) High concentration oxygen (greater than 40%)(33)(99)(100) [ ]c) Frequent respiratory therapy (more frequently than every 4 hours) to maintain airflow rates greater than 60% of baseline(33)(99)(100) [ ]d) Epidural analgesia(87) [ ]e) IV anticoagulation, vasoactive, or antiarrhythmic medication(19 )(23) [ ]f) Acute thrombolytics (generally require 24 hours of observation )(101)(102) [ ]XXIX. Emergency procedures needed; examples include: [ ]a) Emergency inpatient surgery [ ]b) Temporary pacemaker placement(103) [ ]c) Chest tube placement with active evacuation (eg, suction, drainage)(104) [ ]d) Emergent cardioversion(105) [ ]e) Emergent cardiac or vascular procedures (eg, cardiac catheterization, angioplasty) (17)(18) [ ]f) Emergent dialysis access placement and institution(10)(106) [ ]g) Emergent pericardiocentesis(107) [ ]h) Emergent plasmapheresis or leukapheresis(83) [ ]i) Emergent tracheostomy The original [employer] content created by [employer] has been revised. The portions of the content which have been revised are identified through the use of italic text or in bold, and [facility] has neither reviewed nor approved the modified material. All other unmodified content is copyright [employer]. Please see references footnoted in the original [employer] edition 2016 Admission Criteria Met?: Yes NEO JOSEPH Mar 06, 2017 02:25
[2017-03-06 03:59] VITALS: BP 138/69
[2017-03-06] MEDS: IV NORMAL SALINE 1000ML BAG 1,000 ML IV SCH ×2 (04:58→14:13)
[2017-03-06 07:00] VITALS: BP 135/99
[2017-03-06 11:00] VITALS: BP 137/73
[2017-03-06 15:00] VITALS: BP 130/76
[2017-03-06 19:59] VITALS: BP 126/71
[2017-03-06] MEDS ORDERED: ACETAMINOPHEN 650 MG SUPP.RECT. PR PRN (23:45)
[2017-03-06 23:47] VITALS: BP 117/76
[2017-03-07] MEDS: ACETAMINOPHEN 325 MG TABLET. PO PRN ×2 (00:11→12:07)
[2017-03-07 03:59] VITALS: BP 114/73
[2017-03-07 07:00] VITALS: BP 102/64
[2017-03-07 10:34] LABS: CALCIUM 8.1 mg/dL (8.5-10.1); CREATININE 1.2 mg/dL (0.6-1.0); GFR 43.7; POTASSIUM 3.4 mmol/L (3.5-5.1)
[2017-03-07 11:00] VITALS: BP 111/62
--- NOTE | 2017-03-07 11:23 | PDOC ---
GENERAL General: late note from yesterday. charts reviewed. patient at baseline mentally which is bizarre. for placement this admission as very poor living conditions and unable to care for herself. see dictated H&P. Problems: VITAL SIGNS Vital Signs: Vital Signs Date Time Temp Pulse Resp B/P (MAP) Pulse Ox O2 Delivery O2 Flow Rate FiO2 03/07/17 07:00 98.0 67 20 102/64 (77) 98 Room Air 98.0 I & O I & O Intake and Output 03/07/17 07:00 Intake Total 960 ml Balance 960 ml Intake Oral 960 ml # Voids 10 # Bowel Movements 4 ALLERGIES Allergies: Allergies Coded Allergies Type Severity Reaction Last Updated Verified benztropine mesylate Allergy Intermediate 09/10/14 Yes chocolate flavor Allergy Intermediate 09/10/14 Yes cocaine Allergy Intermediate HIVES 09/10/14 Yes codeine Allergy Intermediate 09/10/14 Yes milk Adverse Reaction Intermediate Nausea and Vomiting 04/19/15 Yes MEDS Medications: Current Medications Medications (Trade) Dose Ordered Sig/Agata Start Time Stop Time Status Last Admin Dose Admin Acetaminophen (Acetaminophen Supp) 650 mg PRN Q6HRS PRN 03/06/17 23:45 Acetaminophen (Tylenol) 650 mg PRN Q6HRS PRN 03/06/17 23:45 03/07/17 00:11 650 MG Ceftriaxone Sodium 1 gm/ Sodium Chloride 50 ml @ 100 mls/hr ONCE ONCE 03/07/17 00:00 03/07/17 00:29 DC 03/07/17 00:12 100 MLS/HR Ondansetron HCl (Zofran) 4 mg PRN Q8HRS PRN 03/05/17 17:00 03/06/17 16:59 DC Sodium Chloride 1,000 ml @ 100 mls/hr Q10H 03/05/17 16:53 03/06/17 16:52 DC 03/06/17 14:13 100 MLS/HR Sodium Chloride (Normal Saline Flush) 10 ml QSHIFT PRN 03/05/17 16:45 LAB Lab: Laboratory Tests Test 03/07/17 10:00 Sodium Level 146 mmol/L (136-145) Potassium Level 3.4 mmol/L (3.5-5.1) Chloride Level 115 mmol/L (98-107) Carbon Dioxide Level 22 mmol/L (21-32) Anion Gap 9 (6-14) Blood Urea Nitrogen 29 mg/dL (7-20) Creatinine 1.2 mg/dL (0.6-1.0) Estimated GFR (Cockcroft-Gault) 43.7 Glucose Level 122 mg/dL (70-99) Calcium Level 8.1 mg/dL (8.5-10.1) DARYL THOMPSON MD Mar 07, 2017 11:23
--- NOTE | 2017-03-07 11:26 | PDOC ---
GENERAL General: vss with temp to 101.3. more awake and alert with baseline mental status. creatinine decreasing with hydration. ua with gram negative rods and rocephin started. await placement proceedings and treat dehydration and uti. Problems: VITAL SIGNS Vital Signs: Vital Signs Date Time Temp Pulse Resp B/P (MAP) Pulse Ox O2 Delivery O2 Flow Rate FiO2 03/07/17 07:00 98.0 67 20 102/64 (77) 98 Room Air 98.0 I & O I & O Intake and Output 03/07/17 07:00 Intake Total 960 ml Balance 960 ml Intake Oral 960 ml # Voids 10 # Bowel Movements 4 ALLERGIES Allergies: Allergies Coded Allergies Type Severity Reaction Last Updated Verified benztropine mesylate Allergy Intermediate 09/10/14 Yes chocolate flavor Allergy Intermediate 09/10/14 Yes cocaine Allergy Intermediate HIVES 09/10/14 Yes codeine Allergy Intermediate 09/10/14 Yes milk Adverse Reaction Intermediate Nausea and Vomiting 04/19/15 Yes MEDS Medications: Current Medications Medications (Trade) Dose Ordered Sig/Agata Start Time Stop Time Status Last Admin Dose Admin Acetaminophen (Acetaminophen Supp) 650 mg PRN Q6HRS PRN 03/06/17 23:45 Acetaminophen (Tylenol) 650 mg PRN Q6HRS PRN 03/06/17 23:45 03/07/17 00:11 650 MG Ceftriaxone Sodium 1 gm/ Sodium Chloride 50 ml @ 100 mls/hr ONCE ONCE 03/07/17 00:00 03/07/17 00:29 DC 03/07/17 00:12 100 MLS/HR Ondansetron HCl (Zofran) 4 mg PRN Q8HRS PRN 03/05/17 17:00 03/06/17 16:59 DC Sodium Chloride 1,000 ml @ 100 mls/hr Q10H 03/05/17 16:53 03/06/17 16:52 DC 03/06/17 14:13 100 MLS/HR Sodium Chloride (Normal Saline Flush) 10 ml QSHIFT PRN 03/05/17 16:45 LAB Lab: Laboratory Tests Test 03/07/17 10:00 Sodium Level 146 mmol/L (136-145) Potassium Level 3.4 mmol/L (3.5-5.1) Chloride Level 115 mmol/L (98-107) Carbon Dioxide Level 22 mmol/L (21-32) Anion Gap 9 (6-14) Blood Urea Nitrogen 29 mg/dL (7-20) Creatinine 1.2 mg/dL (0.6-1.0) Estimated GFR (Cockcroft-Gault) 43.7 Glucose Level 122 mg/dL (70-99) Calcium Level 8.1 mg/dL (8.5-10.1) DARYL THOMPSON MD Mar 07, 2017 11:26
[2017-03-07] MEDS: IV NORMAL SALINE 1000ML BAG 1,000 ML IV SCH ×2 (12:11→21:56)
--- NOTE | 2017-03-07 13:57 | HP ---
ADMIT DATE: CHIEF COMPLAINT AND HISTORY OF PRESENT ILLNESS: This is a 76-year-old white female with a history of schizophrenia presented to the Emergency Room with failure to thrive. Both she and her had been under the care of her son for some time, but unfortunately son has had to be hospitalized and was on life support with no one to take care of them. It was found there were in extremely unsafe living condition with filth and bed bugs. There was good deal of malnutrition as they were unable to feed themselves. State agency has come in to help with family care and provide around clock care, but all the providers have quit due to the living conditions. The patient is now a [facility] of the [facility] and they have asked her to be admitted till alf halfway placement can be arranged. She has no specific complaints, but does have acute renal failure at the time of admission and probable UTIs. PAST MEDICAL HISTORY: Remarkable for schizophrenia, dementia, hypertension and seizure. She has chronic nausea and vomiting. PAST SURGICAL HISTORY: She has had a prior . MEDICATIONS: Medications were brought with the patient, listed on the computer and have been addressed. ALLERGIES: INCLUDE BENZTROPINE, CHOCOLATE, COCAINE, CODEINE AND MILK. SOCIAL HISTORY: She is nonsmoker, nondrinker, does not use drugs. Lives at home normally with son and . FAMILY HISTORY: Noncontributory. REVIEW OF SYSTEMS: As mentioned above. PHYSICAL EXAMINATION: GENERAL: She is cachectic appearing white female, who is unkempt. VITAL SIGNS: Stable. She is afebrile. HEAD, EYES, EARS, NOSE AND THROAT: Remarkable for dentition, dryness of mucous membranes. NECK: Supple, without any thyromegaly. CHEST: Clear to auscultation and percussion. HEART: Regular rate and rhythm with rate, 2/6 systolic murmur. ABDOMEN: Soft, nontender, without hepatosplenomegaly or mass. EXTREMITIES: Without cyanosis, clubbing or edema. NEUROLOGIC: Remarkable for the dementia. IMPRESSION: Failure to thrive with dehydration and acute renal failure and likely urinary tract infection on top of schizophrenia in a bad living situation as described above. PLAN: The patient has been admitted. She will be rehydrated. Urine will be cultured. Antibiotics will be started as needed. The placement will be obtained and the patient will be monitored, managed and treated appropriately. DARYL THOMPSON MD DR: Keegan JOB#: [id number] / [id number]
[2017-03-07] MEDS: levETIRAcetam 500 MG TABLET PO SCH ×2 (14:28→21:50)
[2017-03-07 15:00] VITALS: BP 114/68
[2017-03-07 19:00] VITALS: BP 126/65
[2017-03-07] MEDS ORDERED: levETIRAcetam 500 MG TABLET PO SCH (21:00)
[2017-03-07] MEDS: FAMOTIDINE 20 MG TABLET. PO SCH (21:50)
[2017-03-07 23:00] VITALS: BP 132/73
[2017-03-08 07:00] VITALS: BP 122/82
[2017-03-08] MEDS: levETIRAcetam 500 MG TABLET PO SCH ×2 (08:16→20:47)
[2017-03-08] MEDS: IV NORMAL SALINE 1000ML BAG 1,000 ML IV SCH (08:17)
--- NOTE | 2017-03-08 08:39 | PDOC ---
Provider Note Provider Note sleeping, no temp, lab beter- urine e coli sens to all- 1 more day rocep then po , placement JENN ZUÑIGA MD Mar 08, 2017 08:39
[2017-03-08] MEDS ORDERED: POTASSIUM CL 20MEQ D5-0.45NACL 1,000 ML IV ONE (09:00)
[2017-03-08 11:04] VITALS: BP 124/79
[2017-03-08 15:14] VITALS: BP 105/64
[2017-03-08 19:00] VITALS: BP 113/70
[2017-03-08] MEDS: FAMOTIDINE 20 MG TABLET. PO SCH (20:47)
[2017-03-08 23:00] VITALS: BP 128/82
[2017-03-09 07:00] VITALS: BP 145/68
[2017-03-09] MEDS: levETIRAcetam 500 MG TABLET PO SCH (08:10)
--- NOTE | 2017-03-09 08:29 | DISCH ---
DISCHARGE FINAL DIAGNOSIS Problems Medical Problems: (1) Dehydration Status: Acute (2) Failure to thrive Status: Acute (3) Generalized weakness Status: Acute CONDITION ON DISCHARGE: Stable ADMIT TO LTAC: Yes POST DISCHARGE ORDERS ACTIVITY ORDERS: No restrictions WEIGHT BEARING STATUS: No restrictions, As tolerated DIET AFTER DISCHARGE: Regular FOLLOW-UP PHYSICIAN FOLLOW-UP: prn TREATMENT/EQUIPMENT ORDERS ADAPTIVE EQUIPMENT NEEDED: None JENN ZUÑIGA MD Mar 09, 2017 08:29
--- NOTE | 2017-03-09 08:29 | PDOC ---
Provider Note Provider Note [id number] JENN ZUÑIGA MD Mar 09, 2017 08:29
[2017-03-09] MEDS ORDERED: CIPROFLOXACIN HCL 250 MG TABLET. PO SCH (09:00)
[2017-03-09 10:29] VITALS: BP 133/61
--- NOTE | 2017-03-09 10:46 | DS ---
DATE OF DISCHARGE: 03/09/2017 HOSPITAL SUMMARY: A 76-year-old white female with chronic schizophrenia and bad home social situation, was brought in with failure to thrive in a bad home situation. She was found to have prerenal azotemia, BUN 46, creatinine 1.5 and this came down to 29 and 1.2. TSH normal. Hemoglobin low at 9.6. Urine showed evidence of an infection with E. coli greater than ____ colonies, sensitive to all antibiotics tested. She was given 2 doses of IV Rocephin and will switch to oral Cipro and is planning to go to a long-term care facility today. FINAL DIAGNOSES: 1. Urinary tract infection. 2. Prerenal azotemia, resolved secondary to deep dehydration. OPERATIONS, PROCEDURES, COMPLICATIONS, AND CONSULTATIONS: None. DISPOSITION: Three more days of Cipro 250 mg twice a day. Home meds remain the same. Activity and diet as tolerated. She is a DNR and comfort care patient. JENN ZUÑIGA MD DR: SEMAJ/nts JOB#: [id number] / [id number]
[2017-03-09] MEDS ORDERED: CIPR250T PO (10:53)
== END 2017-03-09 14:03 | DRG 683 ==
LOC: ER 16:11 → 5 SOUTH 16:55
PROVIDERS: ADMIT Family Medicine; ATTEND Family Medicine
DX: N17.9 Acute kidney failure, unspecified (principal); N39.0 Urinary tract infection, site not specified; R62.7 Adult failure to thrive; F20.9 Schizophrenia, unspecified; E86.0 Dehydration; Z66 Do not resuscitate; B96.20 Unspecified Escherichia coli [E. coli] as the cause of diseases classified elsewhere; F03.90 Unspecified dementia, unspecified severity, without behavioral disturbance, psychotic disturbance, mood disturbance, and anxiety; Z51.5 Encounter for palliative care; I10 Essential (primary) hypertension; Z91.011 Allergy to milk products; Z88.5 Allergy status to narcotic agent; Z88.8 Allergy status to other drugs, medicaments and biological substances; Z91.018 Allergy to other foods; Z79.899 Other long term (current) drug therapy; Z79.2 Long term (current) use of antibiotics
CPT/HCPCS: 36415; 80048; 80076; 81001; 83735; 84443; 84484; 85027; 87086; 87186; 96360; 96361; J0696; J7030; 99285-25

== ENCOUNTER 2017-06-16 15:44 | Emergency (ER) | payer OTHER ==
[~2017-06-16] VITALS: Ht 152.4 cm; Wt 47.6 kg
[~2017-06-16 15:44] MED LIST changes: +CIPR250T PO
[2017-06-16] MEDS ORDERED: HALOPERIDOL LACTATE 5 MG/ML VIAL. IM ONE (16:00)
--- NOTE | 2017-06-16 16:10 | RAD ---
Indication deformity. A single view of the right shoulder was obtained. There is chronic deformity of the shoulder. There is resorption of the humeral head. There is some deformity of the glenoid. An acute finding is not seen. The appearance of the right shoulder is similar to an examination 11/07/2016. There are healed right rib fractures. IMPRESSION: Chronic deformity associated with the right shoulder
[2017-06-16 16:18] VITALS: BP 170/82
--- NOTE | 2017-06-16 16:36 | PHYS DOC ---
Past Medical History Past Medical History: Dementia, Hypertension, Renal Failure, Seizure, Schizophrenia, UTI, Other Additional Past Medical Histor: CHRONIC N/V, ADULT FTT, DEHYDRATION, CONVERSION DISORDER --UNKNOWN Past Surgical History: Additional Past Surgical Histo: UNKNOWN Alcohol Use: None Additional Information: UNKNOWN Drug Use: None Social History Narrative: UNKNOWN Adult General Chief Complaint Chief Complaint: UPPER EXTREMITY INJURY HPI HPI Patient is a 76 year old female brought in by EMS for evaluation of right shoulder fracture dislocation that was diagnosed on x-ray today. Patient is demented and can provide no meaningful information as this is her baseline. She yells and screams and is upset with everything and is trying to refuse all care. There is to contact phone numbers on her [facility] paperwork which is Lenard who is her DP away but it went to some [facility] phone number that did not answer and then Lewis who is the son but the phone number I called and they said it was a wrong number. I then looked at her old x-rays and it appears that this right shoulder fracture dislocation is exact same as prior imaging studies. Nurse called the [facility] and they say that she is at her mental baseline essentially sent her here because they thought she was having right shoulder pain. Review of Systems Review of Systems Unable to obtain due to mental status Current Medications Current Medications Current Medications Medications (Trade) Dose Ordered Sig/Agata Start Time Stop Time Status Last Admin Dose Admin Haloperidol Lactate (Haldol) 5 mg 1X ONCE 06/16/17 16:00 06/16/17 16:01 DC Allergies Allergies Allergies Coded Allergies Type Severity Reaction Last Updated Verified benztropine mesylate Allergy Intermediate 09/10/14 Yes chocolate flavor Allergy Intermediate 09/10/14 Yes cocaine Allergy Intermediate HIVES 09/10/14 Yes codeine Allergy Intermediate 09/10/14 Yes milk Adverse Reaction Intermediate Nausea and Vomiting 04/19/15 Yes Physical Exam Physical Exam Constitutional: Chronically ill elderly woman yelling and screaming HENT: Normocephalic, atraumatic Eyes: PERRLA Neck: Normal range of motion Cardiovascular:Heart rate regular rhythm Lungs & Thorax: Bilateral breath sounds clear to auscultation [] Abdomen: Bowel sounds normal, soft, no tenderness, no masses, no pulsatile masses. [] Skin: Warm, dry, no erythema, no rash. [] Extremities: Right shoulder deformity but she has 2+ radial and ulnar pulses Neurologic: Moves all extremities Current Patient Data Vital Signs Vital Signs Date Time Temp Pulse Resp B/P (MAP) Pulse Ox O2 Delivery O2 Flow Rate FiO2 06/16/17 15:44 98.2 90 18 154/81 (105) 98 Room Air 98.2 EKG EKG [] Radiology/Procedures Radiology/Procedures Indication deformity. A single view of the right shoulder was obtained. There is chronic deformity of the shoulder. There is resorption of the humeral head. There is some deformity of the glenoid. An acute finding is not seen. The appearance of the right shoulder is similar to an examination 11/07/2016. There are healed right rib fractures. IMPRESSION: Chronic deformity associated with the right shoulder DICTATED and SIGNED BY: BO JONES MD DATE: 06/16/17 160 Course & Med Decision Making Course & Med Decision Making Patient is at her baseline and has normal vital signs and she'll be discharged in stable condition back to the [facility] and told to follow with primary care provider. [facility] called and informed of this plan and they verbalize understanding. Dragon Disclaimer Dragon Disclaimer This electronic medical record was generated, in whole or in part, using a voice recognition dictation system. Departure Departure Impression: Primary Impression: Chronic dislocation of shoulder Disposition: 01 HOME, SELF-CARE Condition: STABLE Referrals: JENN ZUÑIGA MD (PCP) Patient Instructions: Shoulder Dislocation Additional Instructions: This is a chronic problem, follow with ortho with any concerns. Problem Qualifiers Primary Impression: Chronic dislocation of shoulder Laterality: right Qualified Codes: M24.411 - Recurrent dislocation, right shoulder JENN CRESPO DO Jun 16, 2017 16:36
== END 2017-06-16 17:27 | disposition home or self-care (01) ==
LOC: ER 15:44
DX: M24.411 Recurrent dislocation, right shoulder (principal); I12.9 Hypertensive chronic kidney disease with stage 1 through stage 4 chronic kidney disease, or unspecified chronic kidney disease; N18.9 Chronic kidney disease, unspecified; F20.9 Schizophrenia, unspecified; F03.90 Unspecified dementia, unspecified severity, without behavioral disturbance, psychotic disturbance, mood disturbance, and anxiety; I10 Essential (primary) hypertension; Z91.011 Allergy to milk products; Z88.5 Allergy status to narcotic agent; Z88.8 Allergy status to other drugs, medicaments and biological substances; Z91.018 Allergy to other foods; X58.XXXA Exposure to other specified factors, initial encounter; Y93.89 Activity, other specified; Y99.8 Other external cause status; Y92.89 Other specified places as the place of occurrence of the external cause
CPT/HCPCS: 73020; 99284; 99285-25

== ENCOUNTER 2017-10-17 01:35 | Emergency (ER) | payer MEDICAID, OTHER | END 2017-10-17 06:08 | disposition home or self-care (01) | LOC: ER 06:08 | DX: S00.12XA Contusion of left eyelid and periocular area, initial encounter (principal); M25.552 Pain in left hip; M25.551 Pain in right hip; F03.90 Unspecified dementia, unspecified severity, without behavioral disturbance, psychotic disturbance, mood disturbance, and anxiety; F20.9 Schizophrenia, unspecified; I12.9 Hypertensive chronic kidney disease with stage 1 through stage 4 chronic kidney disease, or unspecified chronic kidney disease; N18.9 Chronic kidney disease, unspecified; Z87.440 Personal history of urinary (tract) infections; Z88.8 Allergy status to other drugs, medicaments and biological substances; Z88.4 Allergy status to anesthetic agent; Z88.5 Allergy status to narcotic agent; Z91.02 Food additives allergy status; Z91.011 Allergy to milk products; W18.39XA Other fall on same level, initial encounter; Y93.89 Activity, other specified; Y92.129 Unspecified place in nursing home as the place of occurrence of the external cause; Y99.8 Other external cause status | CPT/HCPCS: 70450; 72170; 99284-25 ==

== ENCOUNTER 2020-02-08 15:19 | Inpatient (IN) | payer OTHER ==
[~2020-02-08] VITALS: Ht 165.1 cm; Wt 60.1 kg
[~2020-02-08 15:19] MED LIST changes: +AMLO5TAB10 PO; -AMLO5TAB2 PO; +LISI1TAB23 PO; -LISI1TAB3 PO
[2020-02-08] MEDS ORDERED: SCOPOLAMINE 1.5MG PATCH. TD PRN (15:30)
[2020-02-08] MEDS ORDERED: BISACODYL 10 MG SUPP.RECT. PR PRN (15:30)
[2020-02-08] MEDS ORDERED: ACETAMINOPHEN 650 MG SUPP.RECT. PR PRN (15:30)
[2020-02-08 15:49] VITALS: BP 152/72
--- NOTE | 2020-02-08 16:09 | NUR ---
Patient Ms. Karma Salcedo 79/F admitted to inpatient hospice under [facility]. She's awake, alert, VS stable, oxygen at 4LPM per nasal cannula, zamarripa catheter in place. Patient was placed in comfortable position, call light within reach.
[2020-02-08 19:00] VITALS: BP 179/86
[2020-02-09 07:00] VITALS: BP 181/79
[2020-02-09] MEDS: MORPHINE SULFATE 2 MG/ML VIAL. IV PRN ×3 (08:58→20:39)
--- NOTE | 2020-02-09 09:22 | PDOC1 ---
History and Physical Date of Admission Date of Admission DATE: 02/09/20 TIME: 09:20 Source Source: Chart review, Patient History of Present Illness History of Present Illness patient had been doing poorly, chronic med conditions limiting, transferred to hospice care, dementia, schizophrenia Past Medical History Cardiovascular: HTN Pulmonary: Asthma CENTRAL NERVOUS SYSTEM: Dementia, Seizure Heme/Onc: Anemia NOS Psych: Anxiety, Depression, Schizophrenia, Other Musculoskeletal: Osteoarthritis Renal/: Chronic renal insuff Past Surgical History Past Surgical History: Cholecystectomy Family History Family History: No Significant, Family History Unknown Social History ALCOHOL: none Drugs: None Current Medications Current Medications Current Medications Morphine Sulfate (Morphine Sulfate) 2 mg PRN Q2HR PRN IV PAIN Last administered on 02/09/20at 08:58; Start 02/08/20 at 15:30 Lorazepam (Ativan Inj) 2 mg PRN Q2HRS PRN IVP ANXIETY / AGITATION Last administered on 02/08/20at 16:42; Start 02/08/20 at 15:30 Scopolamine (Transderm-Scop) 1 patch Q3DAYS PRN TD SECRETIONS; Start 02/08/20 at 15:30 Acetaminophen (Tylenol Supp) 650 mg Q4HRS PRN NE MILD PAIN / TEMP > 100.3'F; Start 02/08/20 at 15:30 Bisacodyl (Dulcolax Supp) 10 mg PRN DAILY PRN NE CONSTIPATION; Start 02/08/20 at 15:30 Active Scripts Active Amlodipine Besylate 5 Mg Tablet 5 Mg PO DAILY 30 Days Nitrofurantoin Craig-Mcr 100 Mg (Nitrofurantoin Monohyd/M-Cryst) 100 Mg Capsule 100 Mg PO BID 7 Days Levetiracetam 500 Mg Tablet 500 Mg PO BID 30 Days Pepcid (Famotidine) 40 Mg Tablet 40 Mg PO HS Reported Ciprofloxacin Hcl 250 Mg Tablet 1 Tab PO BID Ventolin Hfa Inhaler (Albuterol Sulfate) 18 Gm Hfa.aer.ad 18 Gm IH DAILY Allergies Allergies: Coded Allergies: benztropine mesylate (Verified Allergy, Intermediate, 09/10/14) chocolate flavor (Verified Allergy, Intermediate, 09/10/14) cocaine (Verified Allergy, Intermediate, HIVES, 09/10/14) codeine (Verified Allergy, Intermediate, 09/10/14) milk (Verified Adverse Reaction, Intermediate, Nausea and Vomiting, 04/19/15) ROS Review of System unable, not verbal due to demenita, sepsis, hypoxia Physical Exam General: Cooperative HEENT: Atraumatic Lungs: Other Abdomen: Soft Vitals Vitals Vital Signs Date Time Temp Pulse Resp B/P (MAP) Pulse Ox O2 Delivery O2 Flow Rate FiO2 02/09/20 07:00 98.0 74 20 181/79 (113) 88 Room Air 98.0 02/08/20 20:06 4.0 VTE Prophylaxis Ordered VTE Prophylaxis Devices: Yes VTE Pharmacological Prophylaxi: Yes Assessment/Plan Assessment/Plan admit to hospice, COVID -19 pneumonia with sepsis acute hypoxic respiratory failure Altered mental status Acute metabolic encephalopathy SCE TO HYPOXIA, SEPSIS Acute hypoxic resp failure, PROBABLE ASPIRATION OF EMESIS , very poor prognosis given age, hypoxia intractable nausea and vomiting schizophrenia, dementia conversion disorder. HX SEIZURES FLO FLORES MD February 09, 2020 09:22
--- NOTE | 2020-02-09 14:38 | NUR ---
pt bed alarm going off. entered pt room to find pt sitting in chair, zamarripa bag on the floor, tele box removed. pt incont of stool. helped back to bed, cleaned up, and made comfortable. bed alarm turned back on. call light in reach.
[2020-02-09 20:00] VITALS: BP 168/80
[2020-02-10] MEDS ORDERED: SCOP1PAT11 TD (09:38)
[2020-02-10] MEDS ORDERED: MORP15TA PO (09:38)
[2020-02-10] MEDS ORDERED: LORA-434 PO (09:38)
--- NOTE | 2020-02-10 09:39 | SNU/HH DC ---
DISCHARGE ORDERS DISCHARGE INFORMATION: DISCHARGE DATE: February 10, 2020 FINAL DIAGNOSIS COVID -19 dementia hypoxic respiratory failure malnutrition CONDITION ON DISCHARGE: Stable CODE STATUS: Code Status: DNR/DNI POST DISCHARGE ORDERS: ACTIVITY ORDERS: Activity as tolerated WEIGHT BEARING STATUS: As tolerated DIET AFTER DISCHARGE: Regular FOLLOW-UP: PHYSICIAN FOLLOW-UP: hospice care, [facility] TREATMENT/EQUIPMENT ORDERS: ADAPTIVE EQUIPMENT NEEDED: None DISCHARGE MEDICATIONS: Home Meds Active Scripts Morphine Sulfate (MORPHINE SULFATE) 15 Mg Tablet, 1 TAB PO TID PRN for PAIN, #40 TAB Prov:FLO FLORES MD 02/10/20 Lorazepam (ATIVAN) 1 Mg Tablet, 1 MG PO TID PRN for ANXIETY / AGITATION, #60 TAB Prov:FLO FLORES MD 02/10/20 Scopolamine (TRANSDERM-SCOP) 1 Each Patch.td72, 1 PATCH TD Q3DAYS PRN for SECRETIONS, #10 PATCH Prov:FLO FLORES MD 02/10/20 Amlodipine Besylate (AMLODIPINE BESYLATE) 5 Mg Tablet, 5 MG PO DAILY for 30 Days, TAB 5 Refills Prov:MCKENNA BROWN MD 11/12/16 Nitrofurantoin Monohyd/M-Cryst (NITROFURANTOIN MONO-MCR 100 MG) 100 Mg Capsule, 100 MG PO BID for 7 Days, TAB 0 Refills Prov:MCKENNA BROWN MD 11/12/16 Levetiracetam (LEVETIRACETAM) 500 Mg Tablet, 500 MG PO BID for SEIZURES for 30 Days, TAB 6 Refills Prov:MCKENNA BROWN MD 11/12/16 Famotidine (PEPCID) 40 Mg Tablet, 40 MG PO HS, #30 TAB Prov:JENN ZUÑIGA MD 03/17/16 Reported Medications Ciprofloxacin Hcl (CIPROFLOXACIN HCL) 250 Mg Tablet, 1 TAB PO BID, #10 TAB 03/09/17 Albuterol Sulfate (VENTOLIN HFA INHALER) 18 Gm Hfa.aer.ad, 18 GM IH DAILY, #2 09/08/13 FLO FLORES MD February 10, 2020 09:39
--- NOTE | 2020-02-10 13:31 | PDOC ---
PROGRESS NOTES Chief Complaint Chief Complaint COVID -19 pneumonia with sepsis acute hypoxic respiratory failure Altered mental status Acute metabolic encephalopathy SCE TO HYPOXIA, SEPSIS Acute hypoxic resp failure, PROBABLE ASPIRATION OF EMESIS , very poor prognosis given age, hypoxia intractable nausea and vomiting schizophrenia, dementia conversion disorder. HX SEIZURES History of Present Illness History of Present Illness stunning improvement, remarkable turnaround. now off oxygen, sitting up and has eaten breakfast will try to transport back to [facility]. RN contacted her DPOA, full code still, will DC on hospice care, Vitals Vitals Vital Signs Date Time Temp Pulse Resp B/P (MAP) Pulse Ox O2 Delivery O2 Flow Rate FiO2 02/10/20 08:00 Room Air 02/09/20 20:39 92 02/09/20 20:00 98.6 72 20 168/80 (109) 98.6 Physical Exam General: Cooperative Abdomen: Soft Assessment and Plan Assessmemt and Plan try to DC today, [facility] has no beds, Comment Review of Relevant I have reviewed the following items gilbert (where applicable) has been applied. Medications Current Medications Morphine Sulfate (Morphine Sulfate) 2 mg PRN Q2HR PRN IV PAIN Last administered on 02/09/20at 20:39; Start 02/08/20 at 15:30 Lorazepam (Ativan Inj) 2 mg PRN Q2HRS PRN IVP ANXIETY / AGITATION Last administered on 02/08/20at 16:42; Start 02/08/20 at 15:30 Scopolamine (Transderm-Scop) 1 patch Q3DAYS PRN TD SECRETIONS; Start 02/08/20 at 15:30 Acetaminophen (Tylenol Supp) 650 mg Q4HRS PRN AL MILD PAIN / TEMP > 100.3'F; Start 02/08/20 at 15:30 Bisacodyl (Dulcolax Supp) 10 mg PRN DAILY PRN AL CONSTIPATION; Start 02/08/20 at 15:30 Active Scripts Active Morphine Sulfate 15 Mg Tablet 1 Tab PO TID PRN Ativan (Lorazepam) 1 Mg Tablet 1 Mg PO TID PRN Transderm-Scop (Scopolamine) 1 Each Patch.td72 1 Patch TD Q3DAYS PRN Amlodipine Besylate 5 Mg Tablet 5 Mg PO DAILY 30 Days Levetiracetam 500 Mg Tablet 500 Mg PO BID 30 Days Pepcid (Famotidine) 40 Mg Tablet 40 Mg PO HS Reported Ventolin Hfa Inhaler (Albuterol Sulfate) 18 Gm Hfa.aer.ad 18 Gm IH DAILY Vitals/I & O Vital Sign - Last 24 Hours 02/09/20 02/09/20 02/09/20 02/09/20 19:00 20:00 20:00 20:39 Temp 98.6 98.6 Pulse 72 Resp 20 B/P (MAP) 168/80 (109) Pulse Ox 94 92 O2 Delivery Room Air Room Air Room Air Room Air 02/10/20 08:00 O2 Delivery Room Air Intake and Output 02/09/20 02/09/20 02/10/20 15:00 23:00 07:00 Intake Total 0 ml 0 ml Output Total 0 ml 450 ml 300 ml Balance 0 ml -450 ml -300 ml FLO FLORES MD February 10, 2020 13:31
[2020-02-11] MEDS: levETIRAcetam 500 MG TABLET PO SCH ×2 (14:05→20:15)
[2020-02-11] MEDS ORDERED: SCOPOLAMINE 1.5MG PATCH. TD PRN (14:15)
[2020-02-11] MEDS ORDERED: LORazepam 1 MG TABLET PO PRN (14:15)
[2020-02-11] MEDS ORDERED: amLODIPine BESYLATE 5 MG TABLET PO ONE (14:30)
--- NOTE | 2020-02-11 15:11 | PDOC ---
PROGRESS NOTES Chief Complaint Chief Complaint COVID -19 pneumonia with sepsis acute hypoxic respiratory failure Altered mental status Acute metabolic encephalopathy SCE TO HYPOXIA, SEPSIS Acute hypoxic resp failure, PROBABLE ASPIRATION OF EMESIS , very poor prognosis given age, hypoxia intractable nausea and vomiting schizophrenia, dementia conversion disorder. HX SEIZURES History of Present Illness History of Present Illness seizure today, we missed her home keppra with starting hospice are, will restart no other change, she imrpovd shortly, previously, a stunning improvement, still off oxygen, now off oxygen, sitting up and has eaten breakfast will try to transport back to [facility] if they have a covid bed avail will DC on hospice care, Vitals Vitals Vital Signs Date Time Temp Pulse Resp B/P (MAP) Pulse Ox O2 Delivery O2 Flow Rate FiO2 02/11/20 14:36 103 191/87 02/11/20 08:00 Room Air 02/10/20 23:39 20 94 Physical Exam General: Alert, Cooperative, Other (not oriented, cannot speak 5 words) Abdomen: Soft Extremities: No cyanosis Skin: No rashes Comment Review of Relevant I have reviewed the following items gilbert (where applicable) has been applied. Medications Current Medications Morphine Sulfate (Morphine Sulfate) 2 mg PRN Q2HR PRN IV PAIN Last administered on 02/09/20at 20:39; Start 02/08/20 at 15:30 Lorazepam (Ativan Inj) 2 mg PRN Q2HRS PRN IVP ANXIETY / AGITATION Last administered on 02/08/20at 16:42; Start 02/08/20 at 15:30 Scopolamine (Transderm-Scop) 1 patch Q3DAYS PRN TD SECRETIONS; Start 02/08/20 at 15:30 Acetaminophen (Tylenol Supp) 650 mg Q4HRS PRN [place] MILD PAIN / TEMP > 100.3'F; Start 02/08/20 at 15:30 Bisacodyl (Dulcolax Supp) 10 mg PRN DAILY PRN [place] CONSTIPATION; Start 02/08/20 at 15:30 Levetiracetam (Keppra) 500 mg BID PO Last administered on 02/11/20at 14:05; Start 02/11/20 at 14:00 Amlodipine Besylate (Norvasc) 5 mg DAILY PO ; Start 02/12/20 at 09:00 Levetiracetam (Keppra) 500 mg BID PO ; Start 02/11/20 at 21:00; Status UNV Lorazepam (Ativan) 1 mg PRN TID PRN PO ANXIETY / AGITATION; Start 02/11/20 at 14:15 Scopolamine (Transderm-Scop) 1 patch Q3DAYS PRN TD SECRETIONS; Start 02/11/20 at 14:15; Status UNV Famotidine (Pepcid) 40 mg QHS PO ; Start 02/11/20 at 21:00 Amlodipine Besylate (Norvasc) 5 mg 1X ONCE PO Last administered on 02/11/20at 14:36; Start 02/11/20 at 14:30; Stop 02/11/20 at 14:31; Status DC Active Scripts Active Morphine Sulfate 15 Mg Tablet 1 Tab PO TID PRN Ativan (Lorazepam) 1 Mg Tablet 1 Mg PO TID PRN Transderm-Scop (Scopolamine) 1 Each Patch.td72 1 Patch TD Q3DAYS PRN Amlodipine Besylate 5 Mg Tablet 5 Mg PO DAILY 30 Days Levetiracetam 500 Mg Tablet 500 Mg PO BID 30 Days Pepcid (Famotidine) 40 Mg Tablet 40 Mg PO HS Reported Ventolin Hfa Inhaler (Albuterol Sulfate) 18 Gm Hfa.aer.ad 18 Gm IH DAILY Vitals/I & O Vital Sign - Last 24 Hours 02/10/20 02/10/20 02/10/20 02/11/20 19:40 20:10 23:39 08:00 Pulse 93 76 Resp 20 20 Pulse Ox 97 94 O2 Delivery Room Air Room Air Room Air Room Air 02/11/20 14:36 Pulse 103 B/P (MAP) 191/87 Intake and Output0 02/10/20 02/10/20 02/11/20 15:00 23:00 07:00 Intake Total 120 ml 360 ml 30 ml Output Total 600 ml Balance 120 ml -240 ml 30 ml FLO FLORES MD February 11, 2020 15:11
[2020-02-11 19:45] VITALS: BP 182/100
[2020-02-11] MEDS ORDERED: levETIRAcetam 500 MG TABLET PO SCH (21:00)
[2020-02-11] MEDS ORDERED: FAMOTIDINE 20 MG TABLET. PO SCH (21:00)
[2020-02-11 23:58] VITALS: BP 163/83
[2020-02-12] MEDS ORDERED: amLODIPine BESYLATE 5 MG TABLET PO SCH (09:00)
--- NOTE | 2020-02-12 09:29 | PDOC ---
PROGRESS NOTES Chief Complaint Chief Complaint COVID -19 pneumonia with sepsis Acute metabolic encephalopathy SCE TO HYPOXIA, SEPSIS Acute hypoxic resp failure, PROBABLE ASPIRATION OF EMESIS , very poor prognosis given age, hypoxia intractable nausea and vomiting schizophrenia, dementia Conversion disorder. SEIZURES History of Present Illness History of Present Illness Ms Salcedo is a 79 yo F w/ PMHx HTN, asthma, schizophrenia, dementia, seizures, anemia, CKD, urinary incontinence who presented with profound hypoxia and altered mental status from [facility] on 02/02/2020, found COVID-19 positive. She was discharged back to SNF with hospice care. She was readmitted for worsening confusion, hypoxia, seizure. 02/10: seizure today, we missed her home keppra with starting hospice. A stunning COVID 19 improvement Still off oxygen, no further seizures. She has no complaints, says "I'm okay". Plan: will try to transport back to [facility] if they have a covid bed avail will DC on hospice care Vitals Vitals Vital Signs Date Time Temp Pulse Resp B/P (MAP) Pulse Ox O2 Delivery O2 Flow Rate FiO2 02/11/20 23:58 98.5 90 20 163/83 (109) 96 Room Air 98.5 Physical Exam General: Alert, Cooperative, Other (not oriented, cannot speak 5 words) Abdomen: Soft Extremities: No cyanosis Skin: No rashes Comment Review of Relevant I have reviewed the following items gilbert (where applicable) has been applied. Medications Current Medications Morphine Sulfate (Morphine Sulfate) 2 mg PRN Q2HR PRN IV PAIN Last administered on 02/09/20at 20:39; Start 02/08/20 at 15:30 Lorazepam (Ativan Inj) 2 mg PRN Q2HRS PRN IVP ANXIETY / AGITATION Last administered on 02/08/20at 16:42; Start 02/08/20 at 15:30 Scopolamine (Transderm-Scop) 1 patch Q3DAYS PRN TD SECRETIONS; Start 02/08/20 at 15:30 Acetaminophen (Tylenol Supp) 650 mg Q4HRS PRN PA MILD PAIN / TEMP > 100.3'F; Start 02/08/20 at 15:30 Bisacodyl (Dulcolax Supp) 10 mg PRN DAILY PRN PA CONSTIPATION; Start 02/08/20 at 15:30 Levetiracetam (Keppra) 500 mg BID PO Last administered on 02/11/20at 20:15; Start 02/11/20 at 14:00 Amlodipine Besylate (Norvasc) 5 mg DAILY PO ; Start 02/12/20 at 09:00 Levetiracetam (Keppra) 500 mg BID PO ; Start 02/11/20 at 21:00; Status UNV Lorazepam (Ativan) 1 mg PRN TID PRN PO ANXIETY / AGITATION; Start 02/11/20 at 14:15 Scopolamine (Transderm-Scop) 1 patch Q3DAYS PRN TD SECRETIONS; Start 02/11/20 at 14:15; Status UNV Famotidine (Pepcid) 40 mg QHS PO Last administered on 02/11/20at 20:16; Start 02/11/20 at 21:00 Amlodipine Besylate (Norvasc) 5 mg 1X ONCE PO Last administered on 02/11/20at 14:36; Start 02/11/20 at 14:30; Stop 02/11/20 at 14:31; Status DC Active Scripts Active Morphine Sulfate 15 Mg Tablet 1 Tab PO TID PRN Ativan (Lorazepam) 1 Mg Tablet 1 Mg PO TID PRN Transderm-Scop (Scopolamine) 1 Each Patch.td72 1 Patch TD Q3DAYS PRN Amlodipine Besylate 5 Mg Tablet 5 Mg PO DAILY 30 Days Levetiracetam 500 Mg Tablet 500 Mg PO BID 30 Days Pepcid (Famotidine) 40 Mg Tablet 40 Mg PO HS Reported Ventolin Hfa Inhaler (Albuterol Sulfate) 18 Gm Hfa.aer.ad 18 Gm IH DAILY Vitals/I & O Vital Sign - Last 24 Hours 02/11/20 02/11/20 02/11/20 02/11/20 14:36 19:45 20:05 23:58 Temp 96.8 98.5 96.8 98.5 Pulse 103 98 90 Resp 20 20 B/P (MAP) 191/87 182/100 (127) 163/83 (109) Pulse Ox 94 96 O2 Delivery Room Air Room Air Room Air Intake and Output 02/11/20 02/11/20 02/12/20 15:00 23:00 07:00 Intake Total 240 ml 240 ml 30 ml Output Total 550 ml Balance 240 ml -310 ml 30 ml ROBYN MALONEY MD February 12, 2020 09:29
[2020-02-12] MEDS: levETIRAcetam 500 MG TABLET PO SCH (09:52)
[2020-02-12 10:36] VITALS: BP 162/73
--- NOTE | 2020-02-12 13:11 | PDOC3 ---
Discharge Summary Visit Information Date of Admission: February 08, 2020 Date of Discharge: February 12, 2020 Admitting Diagnosis: COVID 19 pneumonia Final Diagnosis COVID 19 pneumonia, seizure Brief Hospital Course Allergies Allergies Coded Allergies Type Severity Reaction Last Updated Verified benztropine mesylate Allergy Intermediate 09/10/14 Yes chocolate flavor Allergy Intermediate 09/10/14 Yes cocaine Allergy Intermediate HIVES 09/10/14 Yes codeine Allergy Intermediate 09/10/14 Yes milk Adverse Reaction Intermediate Nausea and Vomiting 04/19/15 Yes Vital Signs Vital Signs Date Time Temp Pulse Resp B/P (MAP) Pulse Ox O2 Delivery O2 Flow Rate FiO2 02/12/20 10:36 98.2 83 162/73 (102) 92 Room Air 98.2 02/11/20 23:58 20 Brief Hospital Course Ms Salcedo is a 79 yo F w/ PMHx HTN, asthma, schizophrenia, dementia, seizures, anemia, CKD, urinary incontinence who presented with profound hypoxia and altered mental status from [facility] on 02/02/2020, found COVID-19 positive. Patient was found by nursing staff the morning of 02/02/2020 unresponsive with an oxygen saturation in the 70s on room air. EMS was called and on their arrival their findings corroborated what the residential had reported. The patient did vomit enroute. There was no report of fever at the residential however there have been several residents that are COVID-[address] head was negative for any acute abnormalities. Her chest x-ray reported by the radiologist as negative, although there may be faint infiltrates in the right upper lobe. ABG on admit pH of 7.33, pCO2 of 42 and a pO2 of 398 on 100% nonrebreather mask. Her proBNP was 7401. Albumin 3.2 Neurology and pulmonology consulted. Ultimately she was transitioned to inpatient hospice on 02/08/2020. 02/10: seizure today, we missed her home keppra with starting hospice. A stunning COVID 19 improvement Still off oxygen, no further seizures. She has no complaints, says "I'm okay". Problem list: COVID -19 pneumonia with sepsis Acute metabolic encephalopathy SCE TO HYPOXIA, SEPSIS Acute hypoxic resp failure, PROBABLE ASPIRATION OF EMESIS , very poor prognosis given age, hypoxia intractable nausea and vomiting schizophrenia, dementia Conversion disorder. SEIZURES Plan: will try to transport back to [facility] if they have a covid bed avail will DC on hospice care Greater than 30 minutes spent on d/c Discharge Information Condition at Discharge: Stable Follow Up: Weeks (1) Disposition/Orders: D/C to Another Facility ([facility] with hospice) Scheduled Albuterol Sulfate (Ventolin Hfa Inhaler) 18 Gm Hfa.aer.ad, 18 GM IH DAILY, #2 (Reported) Entered as Reported by: NATE BROWNE on 09/08/132233 Last Action: HELD on 02/11/201408 by FLO FLORES Amlodipine Besylate (Amlodipine Besylate) 5 Mg Tablet, 5 MG PO DAILY for 30 Days, Ref 5 Prescribed by: MCKENNA BROWN on 11/12/16 130 Last Action: Continued on 02/11/201408 by FLO FLORES Famotidine (Pepcid) 40 Mg Tablet, 40 MG PO HS, #30 Prescribed by: JENN ZUÑIGA on 03/17/16 0803 Last Action: Converted on 02/11/201408 by FLO FLORES Levetiracetam (Levetiracetam) 500 Mg Tablet, 500 MG PO BID for SEIZURES for 30 Days, Ref 6 Prescribed by: MCKENNA BROWN on 11/12/16 130 Last Action: Continued on 02/11/201408 by FLO FLORES Scheduled PRN Lorazepam (Ativan) 1 Mg Tablet, 1 MG PO TID PRN for ANXIETY / AGITATION, #60 Prescribed by: FLO FLORES on 02/10/20937 Last Action: Continued on 02/11/201408 by FLO FLORES Morphine Sulfate (Morphine Sulfate) 15 Mg Tablet, 1 TAB PO TID PRN for PAIN, #40 Prescribed by: FLO FLORES on 02/10/20937 Last Action: HELD on 02/11/201408 by FLO FLORES Scopolamine (Transderm-Scop) 1 Each Patch.td72, 1 PATCH TD Q3DAYS PRN for SECRETIONS, #10 Prescribed by: FLO FLORES on 02/10/20937 Last Action: Continued on 02/11/201408 by FLO FLORES Discontinued Medications Ciprofloxacin Hcl (Ciprofloxacin Hcl) 250 Mg Tablet, 1 TAB PO BID, #10 (Reported) Entered as Reported by: PIERRE WRIGHT on 03/09/17 1053 Nitrofurantoin Monohyd/M-Cryst (Nitrofurantoin [place]berg-Mcr 100 Mg) 100 Mg Capsule, 100 MG PO BID for 7 Days, Ref 0 Prescribed by: MCKENNA BROWN on 11/12/16 1309 ROBYN MALONEY MD February 12, 2020 13:11
--- NOTE | 2020-02-12 15:31 | NUR ---
pt discharged back to [facility] under [facility]. zamarripa in place d/t comfort care. report given to Marni @ [facility]. meds and vital signs reviewed. pt had no IV at time of DC.
== END 2020-02-12 15:39 | disposition hospice, inpatient (51) | DRG 177 ==
LOC: 6 SOUTH 15:19
PROVIDERS: ADMIT Internal Medicine; ATTEND Internal Medicine
DX: U07.1 COVID-19 (principal); A41.89 Other specified sepsis; G93.41 Metabolic encephalopathy; J12.89 Other viral pneumonia; J96.01 Acute respiratory failure with hypoxia; D63.1 Anemia in chronic kidney disease; F03.90 Unspecified dementia, unspecified severity, without behavioral disturbance, psychotic disturbance, mood disturbance, and anxiety; F20.9 Schizophrenia, unspecified; F44.9 Dissociative and conversion disorder, unspecified; I12.9 Hypertensive chronic kidney disease with stage 1 through stage 4 chronic kidney disease, or unspecified chronic kidney disease; J45.909 Unspecified asthma, uncomplicated; N18.9 Chronic kidney disease, unspecified; R56.9 Unspecified convulsions; Z51.5 Encounter for palliative care; F32.9 Major depressive disorder, single episode, unspecified; F41.9 Anxiety disorder, unspecified; M19.90 Unspecified osteoarthritis, unspecified site; Z90.49 Acquired absence of other specified parts of digestive tract; Z88.8 Allergy status to other drugs, medicaments and biological substances; Z91.011 Allergy to milk products
CPT/HCPCS: 99285; J2060; J2270; G0378